=== PATIENT | female | born 1925 | race African-American/Black ===

== ENCOUNTER 2016-07-19 08:28 | Inpatient (IN) | payer MEDICARE, MEDICAID ==
[~2016-07-19] VITALS: Ht 154.9 cm; Wt 52.6 kg
[~2016-07-19 08:28] MED LIST: AMLODIPINE BESYL5 MG ORAL; ASPIRIN81 MG ORAL; CREON DR 12,001 EACH PO; LEVOTHYROXINE75 MCG ORAL; MEGACE ORA400 MG/10 ORAL; MIRTAZAPINE15 M3 ORAL; NAMENDA5 MG ORAL; OMEPRAZOLE20 M2 ORAL; PERCOCET 10-321 EACH ORAL; ZOCOR20 MG ORAL
[2016-07-19 20:30] VITALS: BP 156/77
[2016-07-19] MEDS ORDERED: D5 1/2NS w/KCl 20mEq 1,000 ML IV SCH (23:00)
[2016-07-19] MEDS ORDERED: Acetaminophen 650 MG SUPP RECTAL PRN (23:00)
[2016-07-19] MEDS ORDERED: Enalaprilat 2.5mg/2ml Inj IV PRN (23:00)
[2016-07-20] VITALS (9 sets, daily range): BP systolic 129–165; BP diastolic 68–84
[2016-07-20] MEDS ORDERED: MIRTAZAPINE30 MG ORAL (02:23)
[2016-07-20] MEDS: metroNIDAZOLE 500mg 100 ML IVPB SCH ×3 (06:06→22:21)
[2016-07-20] MEDS: D5 1/2NS w/KCl 20mEq 1,000 ML IV SCH ×2 (06:39→18:29)
[2016-07-20 08:14] LABS: BASOPHILS % (AUTO) 0.6 % (0.0-2.0); EOSINOPHILS % (AUTO) 0.6 % (0.0-3.0); MEAN CORPUSCULAR HEMOGLOBIN 29.1 PG (27.0-31.0); MEAN CORPUSCULAR HGB CONC 32.1 G/DL (32.0-36.0); MEAN CORPUSCULAR VOLUME 91 FL (80-99); MEAN PLATELET VOLUME 6.1 FL (6.5-10.1); MONOCYTES % (AUTO) 6.9 % (1.0-10.0); NEUTROPHILS % (AUTO) 75.9 % (45.0-75.0); PLATELET COUNT 441 K/UL (150-450); RED BLOOD COUNT 3.92 M/UL (4.20-5.40); RED CELL DISTRIBUTION WIDTH 15.8 % (11.6-14.8); WHITE BLOOD COUNT 11.4 K/UL (4.8-10.8)
[2016-07-20 08:15] LABS: TROPONIN I < 0.30 ng/mL (<=0.30)
[2016-07-20 08:24] LABS: ALANINE AMINOTRANSFERASE 31 U/L (3-33); ALBUMIN/GLOBULIN RATIO 0.9 (1.0-2.7); ANION GAP 22 (5-15); ASPARTATE AMINO TRANSFERASE 43 U/L (5-40); CALCIUM 8.8 mg/dL (8.6-10.2); CARBON DIOXIDE 14 mEQ/L (20-30); CHLORIDE 108 mEQ/L (98-107); CREATININE 1.3 mg/dL (0.5-0.9); HEMOLYSIS 97; POTASSIUM 3.9 mEQ/L (3.4-4.9); SODIUM 144 mEQ/L (135-145); TOTAL PROTEIN 6.9 g/dL (6.6-8.7)
[2016-07-20] MEDS: Pantoprazole Inj IVP SCH (09:08)
[2016-07-20] MEDS: Heparin 5000 units/ml inj SUBQ SCH ×2 (09:11→20:27)
[2016-07-20] MEDS ORDERED: Tubing IV Secondary IV ONE (09:28)
--- NOTE | 2016-07-20 14:04 | Neurology Progress Note ---
Objective Physical Exam Last Vital Signs Date Time Temp Pulse Resp B/P Pulse Ox O2 Delivery O2 Flow Rate FiO2 07/20/16 11:13 97.7 82 18 137/81 100 Nasal Cannula 2.0 07/20/16 08:00 100 Laboratory Tests Test 07/20/16 07:35 White Blood Count 11.4 K/UL (4.8-10.8) H Red Blood Count 3.92 M/UL (4.20-5.40) L Hemoglobin 11.4 G/DL (12.0-16.0) L Hematocrit 35.5 % (37.0-47.0) L Mean Corpuscular Volume 91 FL (80-99) Mean Corpuscular Hemoglobin 29.1 PG (27.0-31.0) Mean Corpuscular Hemoglobin Concent 32.1 G/DL (32.0-36.0) Red Cell Distribution Width 15.8 % (11.6-14.8) H Platelet Count 441 K/UL (150-450) Mean Platelet Volume 6.1 FL (6.5-10.1) L Neutrophils (%) (Auto) 75.9 % (45.0-75.0) H Lymphocytes (%) (Auto) 16.0 % (20.0-45.0) L Monocytes (%) (Auto) 6.9 % (1.0-10.0) Eosinophils (%) (Auto) 0.6 % (0.0-3.0) Basophils (%) (Auto) 0.6 % (0.0-2.0) Sodium Level 144 mEQ/L (135-145) Potassium Level 3.9 mEQ/L (3.4-4.9) Chloride Level 108 mEQ/L (98-107) H Carbon Dioxide Level 14 mEQ/L (20-30) L Anion Gap 22 (5-15) H Blood Urea Nitrogen 30 mg/dL (7-23) H Creatinine 1.3 mg/dL (0.5-0.9) H Estimat Glomerular Filtration Rate mL/min (>60) Glucose Level 108 mg/dL (74-106) H Calcium Level 8.8 mg/dL (8.6-10.2) Total Bilirubin 0.3 mg/dL (0.0-1.2) Aspartate Amino Transf (AST/SGOT) 43 U/L (5-40) H Alanine Aminotransferase (ALT/SGPT) 31 U/L (3-33) Alkaline Phosphatase 366 U/L (35-104) H Troponin I < 0.30 ng/mL (<=0.30) Total Protein 6.9 g/dL (6.6-8.7) Albumin 3.4 g/dL (3.5-5.2) L Globulin 3.5 g/dL Albumin/Globulin Ratio 0.9 (1.0-2.7) L Impression/Recommendations Problems: (1) persistant lethargy r/o sepsis r/o sz activity/meningoencephalitis-doubt (2) Failure to thrive in adult Status: unchanged Recommendations #[id number] RIMMA LAYTON July 20, 2016 14:04
--- NOTE | 2016-07-20 16:31 | History and Physical Report ---
DATE OF ADMISSION: 07/19/2016 CHIEF COMPLAINT: Altered mentation. HISTORY OF PRESENT ILLNESS: This 89-year-old female, well known to me. She has a history of hypertension, dementia, chronic kidney disease and she has a history of chronic DVT status post IVC filter. She was transferred initially to an outside hospital with complaints of altered mental status. According to the patient's family, the patient became acutely altered. She had one day prior she had an episode of incontinence. There are no reports of any seizures or falls. She was taken to [facility]. Workup there so far has been unremarkable. She was diagnosed with the UTI. She had CAT scan of the head showed only diffuse atrophy. She had a duplex that did show DVT in the lower extremities. The patient was on antibiotic therapy for possible UTI and was transferred here for continued care. The patient is currently arousable and does respond to questions, but is minimally verbal. She does follow commands. Denies any chest pain or shortness of breath. No headaches. PAST MEDICAL HISTORY: As above. PAST SURGICAL HISTORY: None. MEDICATIONS: Current medications reconciled and reviewed. ALLERGIES: None. SOCIAL HISTORY: Negative for tobacco, ethanol, or drugs. FAMILY HISTORY: Significant for history of coronary artery disease and hypertension. REVIEW OF SYSTEMS: General: No fever or chills. HEENT: No headaches or visual changes. Cardiopulmonary: No chest pain or shortness of breath. Gastrointestinal: No nausea or vomiting. Genitourinary: No urgency or frequency. Musculoskeletal: Positive history of joint pains. No evidence of seizures. PHYSICAL EXAMINATION: VITAL SIGNS: Temperature 96.6 degrees, pulse 81, respirations 18, and blood pressure 129/68. GENERAL: The patient is well developed thin female, in no apparent distress. She is easily arousable, but only nods yes and no. HEENT: Her pupils are equal, round, and reactive to light. Oropharynx clear. NECK: Supple. HEART: Regular rate and rhythm. LUNGS: Lungs are clear. ABDOMEN: Soft, nontender and nondistended. EXTREMITIES: Without clubbing, cyanosis, or edema. LABORATORY AND DIAGNOSTIC DATA: Laboratories are currently pending. ASSESSMENT: This is an elderly female with complaints of altered mentation, unclear etiology. Initial workup including imaging of the brain have been unremarkable, would be concerned about possible seizures with history of the patient's incontinence. PLAN: EEG, Neurology consultation. Continue antibiotics. We will repeat laboratories. PT, OT and ST evaluations will be obtained. Plan of care has been discussed with the patient's daughter. Pete Martínez M.D. DR: KRISTY JOB#: [id number] CC:
[2016-07-20] MEDS ORDERED: D5 1/2NS w/KCl 20mEq 1,000 ML IV SCH (23:00)
[2016-07-21] VITALS (7 sets, daily range): BP systolic 150–179; BP diastolic 83–98
--- NOTE | 2016-07-21 01:46 | Progress Note ---
DATE: 07/20/2016 CARDIOLOGY PROGRESS NOTE SUBJECTIVE: The patient remains withdrawn and lethargic, but alert. OBJECTIVE: VITAL SIGNS: Blood pressure 165/83, pulse 93, respirations 20, and febrile. NECK: Supple. LUNGS: Clear. CARDIAC: Regular. Normal S1 and S2 with a fourth heart sound. ABDOMEN: Soft. EXTREMITIES: No edema. LABORATORY DATA: Sed rate 86, white count 11.4, and hemoglobin 11.4. Sodium 144, potassium 3.9, bicarb 14, BUN 30, and creatinine 1.3. Troponin negative. Albumin 3.4. IMPRESSION: 1. Metabolic acidosis. 2. Acute on chronic renal failure. 3. Toxic and metabolic encephalopathies. 4. Hypertensive cardiomyopathy with rising blood pressure trend. 5. Diastolic dysfunction with no signs of acute congestive heart failure. 6. Mild protein-calorie malnutrition. 7. Acute on chronic deep venous thrombosis with history of inferior vena cava filter. RECOMMENDATIONS: 1. Continue hydration and antibiotics. 2. Consider alkalinizing intravenous fluids. 3. Avoid tighter blood pressure control at this time. 4. DVT prophylactic doses of heparin. 5. Review EKG when available. Han Capone M.D. DR: MIMI JOB#: [id number] CC:
--- NOTE | 2016-07-21 02:16 | Consultation ---
DATE OF CONSULTATION: 07/20/2016 REQUESTING PHYSICIAN: Pete Martínez M.D. REASON FOR CONSULTATION: Encephalopathy in the setting of hypertensive cardiomyopathy. 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 She was in her usual state of health in fact seen in my office less than 2 weeks ago. Over the past two days, she apparently had an episode of incontinence and became increasingly altered. She was taken to an outside emergency room at [facility] where workup was reviewed. The diagnosis of UTI was made and other diagnostic studies included a CAT scan of the brain revealing diffuse atrophy and venous duplex revealing right-sided chronic thrombus, left-sided acute thrombus and evidence of metabolic acidosis and acute on chronic renal failure. The patient was transferred here for completion of care. According to her daughter, she did not have any leg swelling, shortness of breath, chest pain, or other constitutional symptoms prior to these episodes. PAST MEDICAL HISTORY: Prior history of DVT with IVC filter, chronic kidney disease, hypertension with hypertensive heart disease, diastolic dysfunction, cerebrovascular disease with dementia, osteoarthritis, and degenerative disk disease. ALLERGIES: None. MEDICATIONS: Prior to admission, reviewed and reconciled. SOCIAL HISTORY: Negative for smoking, alcohol, or substance abuse. FAMILY HISTORY: Notable for coronary disease and hypertension in her daughter and hyperlipidemia. REVIEW OF SYSTEMS: No fevers or chills. No cough. No history of asthma. She has chronic DVT and an IVC filter. She has multi-infarct disease. No history of seizures. No change in bowel habits. She has chronic kidney disease, stage 3. There is no history of diabetes or thyroid impairment. PHYSICAL EXAMINATION: VITAL SIGNS: Afebrile. Blood pressure 156/77, pulse 85, respirations 20, and oxygen saturation 98% on 2 liters. HEENT: Temporal wasting. Arcus senilis. Pale conjunctivae. Oropharynx is clear. Mucous membranes dry. NECK: Supple. Jugular venous pressure normal. Carotid upstrokes without delay. LUNGS: Clear. Chest wall without deformity. CARDIAC: Regular rhythm and rate. Normal S1 and S2 with a fourth heart sound. ABDOMEN: Soft and nontender. EXTREMITIES: No edema. NEUROLOGIC: Withdrawn and lethargic. No focal deficits. LABORATORY DATA: Repeat laboratories are pending. Electrocardiogram is not available from prior facility. Troponin is negative. IMPRESSION: 1. Altered mentation. 2. Metabolic encephalopathy. 3. Metabolic acidosis. 4. Acute and chronic deep venous thrombosis. 5. History of inferior vena cava filter. 6. Hypertensive cardiomyopathy. 7. No signs of acute congestive heart failure. 8. Acute on chronic kidney injury. PLAN: 1. Hydration. 2. Monitor acid-base parameters. 3. Titrate antihypertensives. 4. Avoid tight blood pressure control. 5. Continue subcutaneous heparin for DVT prophylaxis. 6. Full anticoagulation would be high risk in this patient and she does already have an IVC filter for this reason. 7. Anti-platelet therapy will be given and she is currently completing antibiotics for urinary infection. 8. An electrocardiogram is pending. Han Capone M.D. DR: JOHNATHON JOB#: [id number] CC:
[2016-07-21] MEDS: metroNIDAZOLE 500mg 100 ML IVPB SCH ×3 (05:41→21:44)
--- NOTE | 2016-07-21 08:58 | General Progress Note ---
Assessment/Plan Problem List: (1) Diarrhea ICD Codes: R19.7 - Diarrhea, unspecified SNOMED: 33464884 (2) Sepsis ICD Codes: A41.9 - Sepsis SNOMED: 52637011 (3) UTI (lower urinary tract infection) ICD Codes: N39.0 - UTI (lower urinary tract infection) SNOMED: 7985506 (4) ARF (acute renal failure) ICD Codes: N17.9 - ARF (acute renal failure) SNOMED: 94674093 (5) Dehydration ICD Codes: E86.0 - Dehydration SNOMED: 95745151 (6) Encephalopathy acute ICD Codes: G93.40 - Encephalopathy acute SNOMED: 2677454 (7) Altered mental state ICD Codes: R41.82 - Altered mental status, unspecified SNOMED: 551664549 (8) persistant lethargy r/o sepsis r/o sz activity/meningoencephalitis-doubt Status: stable, progressing Assessment/Plan tele monitor for diarrhea neuro work up ct abd pt/ot follow up labs dw/ dtr Subjective ROS Limited/Unobtainable: No Constitutional: Reports: malaise, weakness HEENT: Reports: no symptoms Cardiovascular: Reports: no symptoms Respiratory: Reports: no symptoms Gastrointestinal/Abdominal: Reports: no symptoms Genitourinary: Reports: no symptoms Neurologic/Psychiatric: Reports: no symptoms Endocrine: Reports: no symptoms Hematologic/Lymphatic: Reports: no symptoms Allergies: Coded Allergies: No Known Allergies (Verified Allergy, Mild, 05/08/06) All Systems: reviewed and negative except above Subjective no events. less diarrhea. more awake and alert. close to baseline,. very weak Objective Last 24 Hour Vital Signs Date Time Temp Pulse Resp B/P Pulse Ox O2 Delivery O2 Flow Rate FiO2 07/21/16 08:00 98.6 96 20 158/98 100 Room Air 07/21/16 04:00 96 07/21/16 04:00 97.2 93 20 150/85 100 Room Air 2.0 100 07/21/16 00:30 97.2 07/21/16 00:00 92 07/21/16 00:00 95.8 93 20 153/84 100 Room Air 2.0 100 07/20/16 20:26 165/83 07/20/16 20:00 97.0 93 20 165/83 100 Room Air 07/20/16 20:00 93 07/20/16 18:10 139/82 07/20/16 16:00 97.0 85 19 158/84 95 Room Air 07/20/16 15:44 97.2 83 18 140/81 100 Nasal Cannula 2.0 07/20/16 15:42 85 07/20/16 11:43 71 07/20/16 11:13 97.7 82 18 137/81 100 Nasal Cannula 2.0 Intake and Output 07/20/16 07/21/16 19:00 07:00 Intake Total 963.75 ml 875 ml Balance 963.75 ml 875 ml Intake IV Total 963.75 ml 875 ml # Voids 1 1 # Bowel Movements 2 1 Laboratory Tests 07/20/16 14:50: Total Protein (PEP) [Pending], Albumin (PEP) [Pending], Globulin (PEP) [Pending] , Albumin/Globulin Ratio [Pending], Kieiu-2-Kzdbfccgj [Pending], Alpha-2- Globulins [Pending], Beta Globulins [Pending], Beta Gamma Globulin [Pending], PEP Abnormal Protein Bands [Pending], Protein Electrophoresis Interpret [Pending ], CA 15-3 Antigen [Pending], Vitamin D 25-Hydroxy [Pending], 25-Hydroxy Vitamin D2 [Pending], 25-Hydroxy Vitamin D3 [Pending], Anti-Nuclear Antibody Screen [Pending] Height (Feet): 5 Height (Inches): 1.00 Weight (Pounds): 116 General Appearance: WD/WN, alert Neck: supple Cardiovascular: regular rhythm Respiratory/Chest: lungs clear Abdomen: normal bowel sounds, non tender, soft, no organomegaly Edema: no edema noted Arm (L), no edema noted Arm (R), no edema noted Leg (L), no edema noted Leg (R), no edema noted Pedal (L), no edema noted Pedal (R), no edema noted Generalized AMALIA CLAY July 21, 2016 08:58
[2016-07-21] MEDS: Pantoprazole Inj IVP SCH (09:10)
[2016-07-21] MEDS: D5 1/2NS w/KCl 20mEq 1,000 ML IV SCH ×2 (09:10→22:00)
[2016-07-21] MEDS: Heparin 5000 units/ml inj SUBQ SCH ×2 (09:11→20:52)
[2016-07-21] MEDS: Aspirin Baby 81mg ORAL SCH (09:11)
[2016-07-21 10:21] LABS: CA15-3 16.8 U/mL (0.0-25.0)
[2016-07-21 12:02] LABS: ALANINE AMINOTRANSFERASE 27 U/L (3-33); ANION GAP 21 (5-15); ASPARTATE AMINO TRANSFERASE 38 U/L (5-40); CALCIUM 9.1 mg/dL (8.6-10.2); CARBON DIOXIDE 15 mEQ/L (20-30); CHLORIDE 98 mEQ/L (98-107); CREATININE 1.1 mg/dL (0.5-0.9); HEMOLYSIS 17; POTASSIUM 3.4 mEQ/L (3.4-4.9); SODIUM 134 mEQ/L (135-145); TOTAL PROTEIN 7.9 g/dL (6.6-8.7)
[2016-07-21 12:16] LABS: A/G RATIO 0.9 (0.7-1.7); ABNORMAL PROTEIN BAND 1 Not Observed g/dL (Not Observed); ALBUMIN 3.7 g/dL (2.9-4.4); ALPHA-1 GLOBULIN 0.3 g/dL (0.0-0.4); ALPHA-2 GLOBULIN 1.2 g/dL (0.4-1.0); BETA GLOBULIN 1.2 g/dL (0.7-1.3); GAMMA GLOBULIN 1.3 g/dL (0.4-1.8); TOTAL PROTEIN 7.7 g/dL (6.0-8.5)
--- NOTE | 2016-07-21 16:52 | Neurology Progress Note ---
Interim History Interim History ROS Limited/Unobtainable: Yes Complaints: feel ok Events: now avake Objective Physical Exam Last Vital Signs Date Time Temp Pulse Resp B/P Pulse Ox O2 Delivery O2 Flow Rate FiO2 07/21/16 16:02 98.1 94 20 167/86 97 Nasal Cannula 2.0 07/21/16 04:00 100 Laboratory Tests Test 07/21/16 10:50 Sodium Level 134 mEQ/L (135-145) L Potassium Level 3.4 mEQ/L (3.4-4.9) Chloride Level 98 mEQ/L (98-107) Carbon Dioxide Level 15 mEQ/L (20-30) L Anion Gap 21 (5-15) H Blood Urea Nitrogen 16 mg/dL (7-23) Creatinine 1.1 mg/dL (0.5-0.9) H Estimat Glomerular Filtration Rate mL/min (>60) Glucose Level 151 mg/dL (74-106) H Calcium Level 9.1 mg/dL (8.6-10.2) Total Bilirubin 0.3 mg/dL (0.0-1.2) Aspartate Amino Transf (AST/SGOT) 38 U/L (5-40) Alanine Aminotransferase (ALT/SGPT) 27 U/L (3-33) Alkaline Phosphatase 384 U/L (35-104) H Total Protein 7.9 g/dL (6.6-8.7) Albumin 4.0 g/dL (3.5-5.2) Globulin 3.9 g/dL Albumin/Globulin Ratio 1.0 (1.0-2.7) General: well developed, well nourished, no acute distress Head: normocophalic, atraumatic Neck: no rigidity Neurologic Exam Mental Status: awake, alert, other - very confused ox1, follows commands Speech: normal speech, no dysarthia Language: normal language, no aphasia Cranial Nerve II: fundus normal, visual herrera, no papilledema Cranial Nerves III, IV, : PERRLA, EOMI, pupils Cranial Nerve V: normal facial sensations, temporales function normal, masseters function normal, pterygoids function normal Cranial Nerve VII: no facial asymmetry, normal facial expressions Cranial Nerve VIII: no nystagmus Cranial Nerve IX: normal palate elevation, gag response Cranial Nerve X: no voice hoarseness Cranial Nerve XI: SCM symmetric, trapezii function normal Cranial Nerve XII: tongue midline, no tongue atrophy/fasciculations Motor System: normal muscle tone, no involuntary movement, no muscle wasting, other - weakness 4/5 Sensory: normal pinprick Coordination: normal finger to nose bilaterally Deep Tendon Reflexes: 0 ankle (L), 0 ankle (R), 0 bicep (L), 0 bicep (R), 0 brachioradialis (L), 0 brachioradialis (R), 0 knee (L), 0 knee (R), 0 tricep (L) , 0 tricep (R) Reflexes: mute plantar (L), mute plantar (R) Impression/Recommendations Problems: (1) Sepsis with metabolic encephalopathy (2) Failure to thrive in adult (3) Dementia arising in the senium and presenium Status: stable, progressing Recommendations #[id number] neuro stable cont present rx RIMMA LAYTON July 21, 2016 16:52
[2016-07-22] VITALS (7 sets, daily range): BP systolic 127–162; BP diastolic 78–108
--- NOTE | 2016-07-22 03:01 | Progress Note ---
DATE: 07/21/2016 CARDIOLOGY PROGRESS NOTE: SUBJECTIVE: The patient is somewhat more alert and interactive, closer to baseline mentation. She has less diarrhea. OBJECTIVE: VITAL SIGNS: Blood pressure 158/98, pulse 96, respiratory rate 20, afebrile. LUNGS: Coarse breath sounds. Scattered rhonchi. HEART: Regular rhythm and rate. Normal S1, S2. ABDOMEN: Soft. No edema. LABORATORY DATA: Sodium 134, potassium 3.4, bicarbonate 15, BUN 16, creatinine 1.1, glucose 151. Albumin 4. IMPRESSIONS: 1. Dehydration. 2. Hypovolemia. 3. Persistent metabolic acidosis. 4. Chronic kidney disease. 5. Hypertensive heart disease with rising blood pressure range. 6. Cardiomyopathy. 7. Cerebrovascular disease with dementia. PLAN: 1. Continue with hydration. 2. Agree with CT scan of the abdomen. 3. Titrate antihypertensives; however, avoid tight blood pressure control at this time. 4. We will follow. Han Capone M.D. DR: Arnulfo JOB#: [id number] CC:
[2016-07-22] MEDS: metroNIDAZOLE 500mg 100 ML IVPB SCH (05:28)
[2016-07-22] MEDS: D5 1/2NS w/KCl 20mEq 1,000 ML IV SCH ×2 (05:29→23:09)
--- NOTE | 2016-07-22 09:11 | General Progress Note ---
Assessment/Plan Problem List: (1) Diarrhea ICD Codes: R19.7 - Diarrhea, unspecified SNOMED: 22814970 (2) Sepsis ICD Codes: A41.9 - Sepsis SNOMED: 21715012 (3) UTI (lower urinary tract infection) ICD Codes: N39.0 - UTI (lower urinary tract infection) SNOMED: 4014373 (4) ARF (acute renal failure) ICD Codes: N17.9 - ARF (acute renal failure) SNOMED: 96742730 (5) Dehydration ICD Codes: E86.0 - Dehydration SNOMED: 08981729 (6) Encephalopathy acute ICD Codes: G93.40 - Encephalopathy acute SNOMED: 6334499 (7) Altered mental state ICD Codes: R41.82 - Altered mental status, unspecified SNOMED: 152589387 (8) persistant lethargy r/o sepsis r/o sz activity/meningoencephalitis-doubt Status: stable, progressing Assessment/Plan tele monitor for diarrhea neuro work up ct abd pt/ot follow up labs dw/ dtr Subjective ROS Limited/Unobtainable: No Constitutional: Reports: malaise, weakness HEENT: Reports: no symptoms Cardiovascular: Reports: no symptoms Respiratory: Reports: no symptoms Gastrointestinal/Abdominal: Reports: no symptoms Genitourinary: Reports: no symptoms Neurologic/Psychiatric: Reports: no symptoms Endocrine: Reports: no symptoms Hematologic/Lymphatic: Reports: no symptoms Allergies: Coded Allergies: No Known Allergies (Verified Allergy, Mild, 05/08/06) All Systems: reviewed and negative except above Subjective no events. soft stool. more awake and alert. close to baseline. very weak Objective Last 24 Hour Vital Signs Date Time Temp Pulse Resp B/P Pulse Ox O2 Delivery O2 Flow Rate FiO2 07/22/16 08:16 97.0 92 18 157/94 100 Room Air 07/22/16 04:00 89 07/22/16 04:00 97.0 95 20 148/91 98 Nasal Cannula 2.0 100 07/22/16 01:01 143/85 07/22/16 00:00 97.0 101 20 162/108 98 Nasal Cannula 2.0 100 07/22/16 00:00 100 07/21/16 20:08 158/83 07/21/16 20:00 102 07/21/16 20:00 97.0 100 16 179/98 97 Nasal Cannula 2.0 100 07/21/16 16:02 98.1 94 20 167/86 97 Nasal Cannula 2.0 07/21/16 16:00 97 07/21/16 12:08 98.1 93 20 155/90 100 Nasal Cannula 2.0 07/21/16 12:00 91 Intake and Output 07/21/16 07/22/16 19:00 07:00 Intake Total 275 ml 750 ml Output Total 2 ml Balance 275 ml 748 ml Intake Oral 200 ml IV Total 75 ml 750 ml Output Urine Total 2 ml # Voids 3 # Bowel Movements 1 Laboratory Tests 07/21/16 10:50: Sodium Level 134L, Potassium Level 3.4, Chloride Level 98, Carbon Dioxide Level 15L, Anion Gap 21H, Blood Urea Nitrogen 16, Creatinine 1.1H, Estimat Glomerular Filtration Rate , Glucose Level 151H, Calcium Level 9.1, Total Bilirubin 0.3, Aspartate Amino Transf (AST/SGOT) 38, Alanine Aminotransferase (ALT/SGPT) 27, Alkaline Phosphatase 384H, Total Protein 7.9, Albumin 4.0, Globulin 3.9, Albumin /Globulin Ratio 1.0 Height (Feet): 5 Height (Inches): 1.00 Weight (Pounds): 116 Objective General Appearance: WD/WN, alert Neck: supple Cardiovascular: regular rhythm Respiratory/Chest: lungs clear Abdomen: normal bowel sounds, non tender, soft, no organomegaly Edema: no edema noted Arm (L), no edema noted Arm (R), no edema noted Leg (L), no edema noted Leg (R), no edema noted Pedal (L), no edema noted Pedal (R), no edema noted Generalized AMALIA CLAY July 22, 2016 09:11
[2016-07-22] MEDS: Aspirin Baby 81mg ORAL SCH (09:20)
[2016-07-22] MEDS: Pantoprazole Inj IVP SCH (09:21)
[2016-07-22] MEDS: Heparin 5000 units/ml inj SUBQ SCH ×2 (09:22→21:00)
[2016-07-22 11:49] LABS: ALANINE AMINOTRANSFERASE 21 U/L (3-33); ALBUMIN/GLOBULIN RATIO 0.8 (1.0-2.7); ANION GAP 22 (5-15); ASPARTATE AMINO TRANSFERASE 35 U/L (5-40); CALCIUM 8.9 mg/dL (8.6-10.2); CARBON DIOXIDE 15 mEQ/L (20-30); CHLORIDE 98 mEQ/L (98-107); HEMOLYSIS 2; POTASSIUM 3.4 mEQ/L (3.4-4.9); SODIUM 135 mEQ/L (135-145); TOTAL PROTEIN 7.7 g/dL (6.6-8.7)
[2016-07-22] MEDS: metroNIDAZOLE 500mg tab ORAL SCH ×2 (13:54→21:27)
[2016-07-23] VITALS: BP 137/83
--- NOTE | 2016-07-23 03:15 | Progress Note ---
DATE: 07/22/2016 CARDIOLOGY PROGRESS NOTE SUBJECTIVE: The patient is more awake, alert, and interactive. Closer to her baseline level of mentation. OBJECTIVE: VITAL SIGNS: Blood pressure 157/94, pulse 92, and respirations 18. LUNGS: Bilateral breath sounds with no wheezing or rales. HEART: Regular rhythm and rate. Normal S1 and S2 with a fourth heart sound. ABDOMEN: Soft. EXTREMITIES: No edema. LABORATORY DATA: Sodium 135, potassium 3.4, bicarbonate 15, BUN 11, and creatinine 1. Next. IMPRESSION: 1. Metabolic encephalopathy. 2. Metabolic acidosis. 3. Hypokalemia. 4. Hypovolemia. 5. Dehydration. 6. Hypertensive cardiomyopathy with rising blood pressure trend. PLAN: 1. Hydration. 2. Consider bicarbonate replacement. 3. Await CT of the abdomen. 4. Uptitrate antihypertensives. 5. Empiric antibiotics. Han Capone M.D. DR: MIMI JOB#: [id number] CC:
[2016-07-23 04:00] VITALS: BP 149/87
[2016-07-23] MEDS: metroNIDAZOLE 500mg tab ORAL SCH (06:00)
[2016-07-23 06:39] LABS: ALANINE AMINOTRANSFERASE 19 U/L (3-33); ALBUMIN/GLOBULIN RATIO 0.8 (1.0-2.7); ANION GAP 22 (5-15); ASPARTATE AMINO TRANSFERASE 37 U/L (5-40); CALCIUM 9.3 mg/dL (8.6-10.2); CARBON DIOXIDE 16 mEQ/L (20-30); CHLORIDE 99 mEQ/L (98-107); CREATININE 1.1 mg/dL (0.5-0.9); HEMOLYSIS 38; POTASSIUM 3.8 mEQ/L (3.4-4.9); SODIUM 137 mEQ/L (135-145); TOTAL PROTEIN 8.2 g/dL (6.6-8.7)
[2016-07-23] MEDS: Aspirin Baby 81mg ORAL SCH (08:11)
[2016-07-23] MEDS: Heparin 5000 units/ml inj SUBQ SCH ×2 (08:13→21:14)
[2016-07-23 08:20] VITALS: BP 134/90
[2016-07-23 12:34] VITALS: BP 125/79
[2016-07-23] MEDS: Memantine 10mg tab ORAL SCH ×3 (13:15→13:51)
[2016-07-23] MEDS: D5 1/2NS w/KCl 20mEq 1,000 ML IV SCH (14:32)
--- NOTE | 2016-07-23 14:49 | Cardiology Report ---
APPROVED REPORT EKG Measurement Heart [id number] Normal sinus rhythm Normal ECG
[2016-07-23 16:00] VITALS: BP 139/86
[2016-07-23 20:58] VITALS: BP 145/75
[2016-07-23] MEDS ORDERED: Donepezil 5mg Tab ORAL SCH (21:00)
[2016-07-23] MEDS ORDERED: Acetaminophen 650 MG SUPP RECTAL PRN (23:00)
--- NOTE | 2016-07-23 23:30 | Progress Note ---
DATE: 07/23/2016 CARDIOLOGY PROGRESS NOTE SUBJECTIVE: There are no new complaints. The patient remains withdrawn, but improving daily. No chest pain. No shortness of breath. OBJECTIVE: VITAL SIGNS: Blood pressure 145/75, pulse 97, respirations 18, and room air oxygen saturation 98%. NECK: Supple. LUNGS: Clear. CARDIAC: Regular. Normal S1 and S2 with a fourth heart sound. ABDOMEN: Soft. EXTREMITIES: No edema. LABORATORY DATA: BUN 9, creatinine 1.1, bicarbonate 16, sodium 137, potassium 3.8, and glucose 118. IMPRESSION: 1. Metabolic encephalopathy. 2. Metabolic acidosis. 3. Hypertensive heart disease. 4. Accelerated blood pressure. 5. Recurring diarrhea. 6. Resolving sepsis. 7. Acute on chronic renal failure. 8. Urinary tract infection. PLAN: 1. Continue hydration. 2. Titration of antihypertensives. 3. Monitor volume status and cardiorenal parameters. 4. Await CT scan of the abdomen. 5. Mobilize. Han Capone M.D. DR: JOHNATHON JOB#: [id number] CC:
[2016-07-24] VITALS: BP 110/62
[2016-07-24] MEDS ORDERED: Enalaprilat 2.5mg/2ml Inj IV PRN
[2016-07-24] MEDS: D5 1/2NS w/KCl 20mEq 1,000 ML IV SCH ×3 (00:09→20:00)
[2016-07-24 04:00] VITALS: BP 121/68
[2016-07-24 07:45] LABS: BASOPHILS % (AUTO) 0.6 % (0.0-2.0); EOSINOPHILS % (AUTO) 1.1 % (0.0-3.0); LYMPHOCYTES % (AUTO) 22.4 % (20.0-45.0); MEAN CORPUSCULAR HEMOGLOBIN 29.2 PG (27.0-31.0); MEAN CORPUSCULAR HGB CONC 33.6 G/DL (32.0-36.0); MEAN CORPUSCULAR VOLUME 87 FL (80-99); MEAN PLATELET VOLUME 6.4 FL (6.5-10.1); MONOCYTES % (AUTO) 7.3 % (1.0-10.0); NEUTROPHILS % (AUTO) 68.5 % (45.0-75.0); PLATELET COUNT 557 K/UL (150-450); RED BLOOD COUNT 4.66 M/UL (4.20-5.40); RED CELL DISTRIBUTION WIDTH 15.2 % (11.6-14.8); WHITE BLOOD COUNT 14.9 K/UL (4.8-10.8)
[2016-07-24 08:00] VITALS: BP 110/62
[2016-07-24 08:17] LABS: MAGNESIUM 1.1 mg/dL (1.7-2.5)
[2016-07-24 08:23] LABS: ALANINE AMINOTRANSFERASE 14 U/L (3-33); ALBUMIN/GLOBULIN RATIO 0.8 (1.0-2.7); ANION GAP 20 (5-15); ASPARTATE AMINO TRANSFERASE 27 U/L (5-40); CALCIUM 8.7 mg/dL (8.6-10.2); CARBON DIOXIDE 15 mEQ/L (20-30); CHLORIDE 101 mEQ/L (98-107); CREATININE 1.1 mg/dL (0.5-0.9); HEMOLYSIS 3; POTASSIUM 3.8 mEQ/L (3.4-4.9); SODIUM 136 mEQ/L (135-145)
--- NOTE | 2016-07-24 08:33 | Diagnostic Imaging Report ---
Indications: Abdominal pain and diarrhea Technique: Continuous helical CT imaging of the abdomen and pelvis was performed with automatic exposure control following administration of oral contrast only, on a Siemens sensation [address] scanner. Axial images were reconstructed at 5 mm slice thickness and interval. Coronal images were reconstructed at 5 mm slice thickness. No IV contrast was administered per requesting physicians order, despite no contraindications listed. CTDI volume(s): 11 mGy Total DLP: 521 mGy-cm Findings: Comparison: Noncontrast CT abdomen pelvis 10/31/13 Again, lack of IV contrast limits evaluation. Oral contrast has passed throughout the gastrointestinal tract to the level of the rectosigmoid. The latter is moderately distended and fecal filled. Remainder of tract nondilated. No obvious mural thickening, adjacent stranding, extraluminal gas or fluid collections. 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 Remainder visualized abdominopelvic anatomy demonstrates no other obvious acute abnormality. Irregular pleural-based linear densities persist in both lung bases. Prominent calcification again noted in region of mitral valve. Multilevel disc space narrowing/calcification with marginal osteophyte formation, facet sclerosis and hypertrophy again noted in lumbar spine. Subcentimeter anterior spondylolisthesis again noted at L4-5. Compression fracture of the superior endplate of the L1 vertebral body now noted, resulting in 30-40% height loss and mild retropulsion. No obvious posterior element involvement. IMPRESSION: No evidence of acute abdominopelvic disease, with limitation as described. Subtle but potentially significant abnormalities may be missed. Repeat CT scan with full oral and IV contrast preparation recommended for more complete evaluation, as clinically indicated. Interval development of moderate compression fracture of L1 vertebral body with mild retropulsion, acuity indeterminate. Consider MRI for further evaluation as clinically indicated. Multiple stable chronic changes as described
[2016-07-24] MEDS: Aspirin Baby 81mg ORAL SCH (09:44)
[2016-07-24] MEDS: Memantine 10mg tab ORAL SCH ×2 (09:47→18:11)
[2016-07-24] MEDS: Heparin 5000 units/ml inj SUBQ SCH ×2 (09:52→21:04)
[2016-07-24 11:37] LABS: VITAMIN D 25-OH TOTAL 46 ng/mL (.)
[2016-07-24 12:12] VITALS: BP 113/69
[2016-07-24 16:16] VITALS: BP 146/74
[2016-07-24 20:00] VITALS: BP 138/79
[2016-07-24] MEDS: Donepezil 5mg Tab ORAL SCH (20:57)
[2016-07-24] MEDS ORDERED: Norco 5mg/325mg tab ORAL PRN (21:00)
[2016-07-24 21:17] LABS: APPEARANCE,URINE CLEAR; KETONES,URINE NEGATIVE (NEGATIVE); LEUKOCYTE ESTERASE ,URINE 3+ (NEGATIVE); NITRITE,URINE NEGATIVE (NEGATIVE); PH,URINE 5 (4.5-8.0); PROTEIN,URINE 1+ (NEGATIVE); UROBILINOGEN,URINE NORMAL MG/DL (0.0-1.0)
[2016-07-24 21:23] LABS: BACTERIA,URINE FEW /HPF; SQUAMOUS EPITHELIAL CELL,UR FEW /LPF (NONE/OCC)
[2016-07-25] VITALS (7 sets, daily range): BP systolic 118–153; BP diastolic 69–80
[2016-07-25] MEDS: D5 1/2NS w/KCl 20mEq 1,000 ML IV SCH (06:11)
--- NOTE | 2016-07-25 07:34 | General Progress Note ---
Assessment/Plan Problem List: (1) Diarrhea ICD Codes: R19.7 - Diarrhea, unspecified SNOMED: 94906205 (2) Sepsis ICD Codes: A41.9 - Sepsis SNOMED: 15896175 (3) UTI (lower urinary tract infection) ICD Codes: N39.0 - UTI (lower urinary tract infection) SNOMED: 7633039 (4) ARF (acute renal failure) ICD Codes: N17.9 - ARF (acute renal failure) SNOMED: 32971114 (5) Dehydration ICD Codes: E86.0 - Dehydration SNOMED: 47558112 (6) Encephalopathy acute ICD Codes: G93.40 - Encephalopathy acute SNOMED: 7434110 (7) Altered mental state ICD Codes: R41.82 - Altered mental status, unspecified SNOMED: 589580127 (8) persistant lethargy r/o sepsis r/o sz activity/meningoencephalitis-doubt Status: stable, not improved Assessment/Plan monitor for diarrhea neuro work up ct abd- negative pt/ot follow up labs- WBC dc planning if labs ok dispo to be determined. await official PT recs. SNF ? ARU ? home with home health dw/ dtr Subjective ROS Limited/Unobtainable: Yes Constitutional: Reports: malaise, weakness HEENT: Reports: no symptoms Cardiovascular: Reports: no symptoms Respiratory: Reports: no symptoms Gastrointestinal/Abdominal: Reports: poor appetite Genitourinary: Reports: no symptoms Neurologic/Psychiatric: Reports: pre-existing deficit Endocrine: Reports: no symptoms Hematologic/Lymphatic: Reports: anemia Allergies: Coded Allergies: No Known Allergies (Verified Allergy, Mild, 05/08/06) All Systems: reviewed and negative except above Subjective no events. poor pos. Pt noted. remains weak. am labs pending. Objective Last 24 Hour Vital Signs Date Time Temp Pulse Resp B/P Pulse Ox O2 Delivery O2 Flow Rate FiO2 07/25/16 04:00 96.6 86 18 147/76 100 Room Air 07/25/16 00:00 96.1 87 20 127/70 97 Room Air 07/24/16 20:00 97.7 90 20 138/79 94 Room Air 07/24/16 18:07 73 146/74 07/24/16 16:16 97.7 79 16 146/74 96 Room Air 07/24/16 12:12 97.2 95 20 113/69 100 Room Air 07/24/16 09:46 76 112/77 07/24/16 08:00 96.6 96 17 110/62 99 Room Air Intake and Output 07/24/16 07/25/16 19:00 07:00 Intake Total 625 ml 600 ml Balance 625 ml 600 ml Intake Oral 550 ml IV Total 75 ml 600 ml # Voids 4 2 Laboratory Tests 07/24/16 20:45: Urine Color Pale yellow, Urine Appearance Clear, Urine pH 5, Urine Specific [place] 1.010, Urine Protein 1+H, Urine Glucose (UA) Negative, Urine Ketones Negative, Urine Occult Blood 5+H, Urine Nitrite Negative, Urine Bilirubin Negative, Urine Urobilinogen Normal, Urine Leukocyte Esterase 3+H, Urine RBC 5- 10H, Urine WBC 2-4, Urine Squamous Epithelial Cells Few, Urine Bacteria Few Height (Feet): 5 Height (Inches): 1.00 Weight (Pounds): 116 Objective General Appearance: WD/WN, alert Neck: supple Cardiovascular: regular rhythm Respiratory/Chest: lungs clear Abdomen: normal bowel sounds, non tender, soft, no organomegaly Edema: no edema noted Arm (L), no edema noted Arm (R), no edema noted Leg (L), no edema noted Leg (R), no edema noted Pedal (L), no edema noted Pedal (R), no edema noted Generalized AMALIA CLAY July 25, 2016 07:34
--- NOTE | 2016-07-25 09:15 | Diagnostic Imaging Report ---
Indication: Chest pain Technique: One view of the chest Comparison: 06/19/2014 Findings: Inferior vena cava filter is again demonstrated. Lungs and pleural spaces remain clear. The heart size is normal. Aorta is tortuous and calcified. Impression: No acute process
[2016-07-25] MEDS: Aspirin Baby 81mg ORAL SCH (09:18)
[2016-07-25] MEDS: Heparin 5000 units/ml inj SUBQ SCH ×2 (09:18→21:19)
[2016-07-25] MEDS: Memantine 10mg tab ORAL SCH ×2 (09:20→17:09)
[2016-07-25 11:06] LABS: BASOPHILS % (AUTO) 0.8 % (0.0-2.0); LYMPHOCYTES % (AUTO) 20.8 % (20.0-45.0); MEAN CORPUSCULAR HEMOGLOBIN 28.6 PG (27.0-31.0); MEAN CORPUSCULAR HGB CONC 32.6 G/DL (32.0-36.0); MEAN CORPUSCULAR VOLUME 88 FL (80-99); MEAN PLATELET VOLUME 6.2 FL (6.5-10.1); MONOCYTES % (AUTO) 6.6 % (1.0-10.0); NEUTROPHILS % (AUTO) 68.9 % (45.0-75.0); PLATELET COUNT 563 K/UL (150-450); RED BLOOD COUNT 5.06 M/UL (4.20-5.40); RED CELL DISTRIBUTION WIDTH 15.8 % (11.6-14.8); WHITE BLOOD COUNT 13.5 K/UL (4.8-10.8)
[2016-07-25] MEDS: Donepezil 5mg Tab ORAL SCH (21:14)
[2016-07-26] MEDS: D5 1/2NS w/KCl 20mEq 1,000 ML IV SCH ×3 (00:12→23:45)
[2016-07-26 04:00] VITALS: BP 141/69
[2016-07-26 07:05] LABS: BASOPHILS % (AUTO) 0.9 % (0.0-2.0); EOSINOPHILS % (AUTO) 3.1 % (0.0-3.0); LYMPHOCYTES % (AUTO) 20.8 % (20.0-45.0); MEAN CORPUSCULAR HEMOGLOBIN 29.3 PG (27.0-31.0); MEAN CORPUSCULAR HGB CONC 33.1 G/DL (32.0-36.0); MEAN CORPUSCULAR VOLUME 89 FL (80-99); MEAN PLATELET VOLUME 5.9 FL (6.5-10.1); NEUTROPHILS % (AUTO) 66.3 % (45.0-75.0); PLATELET COUNT 574 K/UL (150-450); RED BLOOD COUNT 4.63 M/UL (4.20-5.40); RED CELL DISTRIBUTION WIDTH 15.5 % (11.6-14.8)
[2016-07-26 07:30] LABS: ALANINE AMINOTRANSFERASE 10 U/L (3-33); ALBUMIN/GLOBULIN RATIO 1.1 (1.0-2.7); ANION GAP 19 (5-15); ASPARTATE AMINO TRANSFERASE 23 U/L (5-40); CALCIUM 8.8 mg/dL (8.6-10.2); CARBON DIOXIDE 15 mEQ/L (20-30); CHLORIDE 103 mEQ/L (98-107); CREATININE 1.2 mg/dL (0.5-0.9); HEMOLYSIS 34; MAGNESIUM 2.4 mg/dL (1.7-2.5); POTASSIUM 4.6 mEQ/L (3.4-4.9); SODIUM 137 mEQ/L (135-145); TOTAL PROTEIN 6.5 g/dL (6.6-8.7)
[2016-07-26 08:00] VITALS: BP 123/68
[2016-07-26] MEDS: Aspirin Baby 81mg ORAL SCH (09:01)
[2016-07-26] MEDS: Memantine 10mg tab ORAL SCH ×2 (09:01→18:04)
[2016-07-26] MEDS: Heparin 5000 units/ml inj SUBQ SCH ×2 (09:02→20:54)
[2016-07-26 11:51] VITALS: BP 131/68
[2016-07-26 15:55] VITALS: BP 144/76
--- NOTE | 2016-07-26 18:46 | Consultation ---
DATE OF CONSULTATION: HISTORY OF PRESENT ILLNESS: The patient is a 89-year-old female with a history of multiple medical problems including dementia, multiple UTIs, and acute renal failure, has been admitted to the hospital with altered mental status. Psychiatry was consulted. The patient presented with some anxiety and not improvement of the confusion. During the evaluation, the patient is a poor historian, presents with waxing and waning consciousness. No anxiety during the evaluation. The patient is currently receiving mirtazapine 30 mg at bedtime as well as memantine and donepezil. PAST PSYCHIATRIC HISTORY: Dementia has been treated with anxiolytics in the past. PAST MEDICAL HISTORY: Significant for hypertension, chronic kidney disease, DVT and urinary tract infection. PAST SURGICAL HISTORY: None. MEDICATIONS: Simvastatin, oxycodone, omeprazole, mirtazapine, memantine, megestrol, lipase, levothyroxine, aspirin and amlodipine. ALLERGIES: No known drug allergies. SOCIAL HISTORY: Substance abuse history, no history of illicit drug use or alcohol. Nonsmoker. FAMILY HISTORY: The patient has history of coronary artery disease as well as hypertension. MENTAL STATUS EXAMINATION: The patient was found asleep, however arousable. The patient appears to be confused and has waxing and waning consciousness. Mood is neutral during the evaluation, however, reported some anxiety and agitation. Affect is constricted congruent with mood. Thought process, there is a paucity of thought content. Memory, concentration and attention is impaired. Insight and judgment is impaired. ASSESSMENT: AXIS I Delirium due to general medical condition, however, the imaging has been unremarkable. Dementia. AXIS II Deferred. AXIS III Altered mental status. AXIS IV Low. AXIS V Global assessment of functioning is 25. PLAN: 1. The patient currently on 30 mg at bedtime, the dosage will be decreased to 15 mg at bedtime. 2. We will observe any improvement. No other psychotropic medications, I also recommend. 3. We will continue to observe the behavior. Ricco Reid M.D. DR: UMAIR JOB#: [id number] CC:
[2016-07-26 20:00] VITALS: BP 132/83
[2016-07-26] MEDS: Donepezil 5mg Tab ORAL SCH (20:50)
[2016-07-26 23:42] VITALS: BP 151/78
[2016-07-27 04:00] VITALS: BP 126/72
[2016-07-27] MEDS: D5 1/2NS w/KCl 20mEq 1,000 ML IV SCH (06:22)
[2016-07-27 08:01] VITALS: BP 140/77
[2016-07-27] MEDS: Aspirin Baby 81mg ORAL SCH (09:47)
[2016-07-27] MEDS: Memantine 10mg tab ORAL SCH (09:47)
[2016-07-27] MEDS: Heparin 5000 units/ml inj SUBQ SCH (09:48)
--- NOTE | 2016-07-27 11:41 | General Progress Note ---
Assessment/Plan Assessment/Plan GI CONSULT Dictated D/w DTR re possible PEG Family will evaluate and give me an answer over next few days Would continue Remeron. Push po. Family bringing home meals. Thank you José Jones MD Subjective Allergies: Coded Allergies: No Known Allergies (Verified Allergy, Mild, 05/08/06) Objective Last 24 Hour Vital Signs Date Time Temp Pulse Resp B/P Pulse Ox O2 Delivery O2 Flow Rate FiO2 07/27/16 09:47 83 140/77 07/27/16 08:01 97.8 83 18 140/77 95 Room Air 07/27/16 04:00 97.5 86 18 126/72 97 Room Air 07/26/16 23:42 96.3 93 20 151/78 93 Room Air 07/26/16 20:00 97.9 91 18 132/83 100 Room Air 07/26/16 18:04 96 144/76 07/26/16 15:55 97.0 96 18 144/76 98 Room Air 07/26/16 11:51 96.1 89 18 131/68 94 Room Air Intake and Output 07/26/16 07/27/16 19:00 07:00 Intake Total 810 ml 600 ml Balance 810 ml 600 ml Intake Oral 360 ml IV Total 450 ml 600 ml # Voids 4 2 # Bowel Movements 2 Height (Feet): 5 Height (Inches): 1.00 Weight (Pounds): 116 JOSÉ JONES July 27, 2016 11:40
[2016-07-27 12:00] VITALS: BP 128/73
[2016-07-27] MEDS ORDERED: NORVASC5 MG ORAL (14:11)
[2016-07-27] MEDS ORDERED: PROTONIX40 MG ORAL (14:11)
[2016-07-27] MEDS ORDERED: ACETAMINOPHEN650 MG RECTAL (14:11)
[2016-07-27] MEDS ORDERED: NAMENDA10 MG ORAL (14:11)
[2016-07-27] MEDS ORDERED: MIRTAZAPINE15 M3 ORAL (14:11)
[2016-07-27] MEDS ORDERED: ASPIRIN81 MG ORAL (14:11)
[2016-07-27] MEDS ORDERED: ARICEPT5 MG ORAL (14:11)
--- NOTE | 2016-07-27 15:32 | Wound Care Consultation ---
Wound Assessment Wound Assessment : Wound Number: #1 Wound Present on Admission: Yes New Wound: No Status Change of Wound: No Wound Location Body Site Modif: right Wound Location Body Site: heel Wound Type: pressure ulcer Irene Test: Does not Irene Pressure Ulcer Stage: deep tissue injury Wound Thickness: Full Thickness Wound Length: 3.0 Wound Width: 3.0 Wound Depth: utd Percent of Wound Purple/Maroon: 100 Wound Drainage Amount: None Wound Drainage Odor: None/Absent Tissue Surrounding Wound: Intact Wound General Appearance: Reddened - maroon Wound Comment #1 right heel deep tissue injury, admitted with DTI remains intact. sacral and left heel assessed , remains intact, no pressure ulcer present. Recommendation. - Local wound care as ordered. - Turn and reposition. - Low air loss mattress SPR. - Keep clean and dry. - Heel protectors. - Float heels . -Avoid shear and friction. -Assess and notify MD for any changes of condition. NANCY ROJO July 27, 2016 15:32
[2016-07-27 16:00] VITALS: BP 145/84
--- NOTE | 2016-07-27 21:32 | Progress Note ---
DATE: 07/27/2016 SUBJECTIVE: The patient is calm and cooperative. No behavior issues. The patient still complains of low appetite and family bringing food from home and encouraging the patient's to eat. The patient is slightly drowsy in the morning, however, more lucid. Compliant with medication. No behavior issues. MENTAL STATUS EXAMINATION: Alert and oriented times self. Mood is dysphoric. Affect is constricted. Congruent mood. Thought process is concrete. Thought content, no suicidal or homicidal ideation. No psychotic symptoms. Cognition is impaired. ASSESSMENT: 1. Major depressive disorder. 2. Failure to thrive. 3. Altered mental status. PLAN: 1. The patient will be continued on Remeron 50 milligram by mouth at bedtime. 2. We will continue to follow and monitor the patient's behavior. Ricco Reid M.D. DR: TONIA JOB#: [id number] CC:
--- NOTE | 2016-07-27 23:18 | Consultation ---
DATE OF CONSULTATION: 07/27/2016 GASTROENTEROLOGY CONSULTATION CHIEF COMPLAINT: I was asked to see this patient by Dr. Pete Martínez for evaluation of possible gastrostomy tube placement. HISTORY OF PRESENT ILLNESS: The patient is a debilitated 89-year-old woman with some degree of cognitive dysfunction, who was brought into the hospital due to failure to thrive and altered mental status. The patient was seen by other consultants. She is awake, but weak. The patient's daughter states that the patient has been eating reasonably well, although she sometimes takes encouragement and about eight days ago, however, she had some decline and has reduced her oral intake. She is here with a diagnosis of vomiting and dehydration and perhaps urinary tract infection. On my evaluation of the patient, she states she feels well and she has no symptoms. I discussed the indications, risks, alternatives, and possible complications of a gastrostomy tube placement with the patient's daughter and she wants to think about the issue. PAST MEDICAL HISTORY: History of failure to thrive, dementia, cardiomyopathy, and hypertension. SOCIAL HISTORY: The patient resides at home with her daughter who looks after her. She has had no recent history of smoking or drinking. FAMILY HISTORY: Noncontributory. REVIEW OF SYSTEMS: Otherwise negative. PHYSICAL EXAMINATION: GENERAL: Debilitated elderly woman, seen in her room. HEENT: Normocephalic and atraumatic. Sclerae anicteric. Oropharynx clear. NECK: Supple. CHEST: Clear to auscultation. CARDIOVASCULAR: Revealed a regular rate. ABDOMEN: Soft. Good bowel sounds. There is no organomegaly. EXTREMITIES: Revealed no edema. LABORATORY DATA: Laboratory data were noted. The patient had elevated alkaline phosphatase level, which is declining. Recent CT scan was noted. ASSESSMENT: This patient presents with failure to thrive, debilitation, dementia, and poor oral intake. Some of this is presumed to be acute due to her encephalopathy. This in turn may be due to acute process such as urinary tract infection, which is reversible. The patient's daughter wants to see if she can still monitor the patient and feed her by natural routes. At this point, she is not agreeable to gastrostomy tube placement to improve. The patient does have a mild elevation in alkaline phosphatase, which is improving. Her CT scan was negative and follows for now. Further workup considered if it persists or worsens. RECOMMENDATIONS: 1. Push oral intake. 2. Follow caloric intake and nutrition. 3. Treat the infection or any other underlying derangement. 4. Family decisions to follow. Thank you for asking me to participate in the care of this patient. Joés Jones M.D. DR: Joann JOB#: [id number] CC:
--- NOTE | 2016-07-29 05:52 | Discharge Summary ---
Discharge Summary Hospital Course Date of Admission July 19, 2016 at 20:48 Date of Discharge July 27, 2016 at 17:09 Admitting Diagnosis HPI Miesha Lombardi is a 89 year old female who was admitted on July 19, 2016 at 20:48 for Altered Mental Status Hospital Course [id number] Discharge Discharge Disposition Patient was discharged to SNF/Subacute Facility(03) Discharge Diagnoses: Juliana Whitlock NP July 29, 2016 05:52
--- NOTE | 2016-07-30 00:31 | Discharge Summary 2 SIG ---
DATE OF ADMISSION: 07/19/2016 DATE OF DISCHARGE: 07/27/2016 CONSULTANTS: 1. Jayden Rain M.D. 2. Han Capone M.D. 3. Ricco Reid M.D. 4. José Jones M.D. BRIEF HOSPITAL COURSE: The patient is an 89-year-old female with history of hypertension, dementia, chronic kidney disease, and history of chronic DVT, status post IVC filter. She was transferred initially to an outside hospital with complaints of altered mental status. According to the patient's family, the patient became acutely altered a day prior. She had an episode of incontinence. There were no reports of any seizure or falls. She was taken to [facility] and workup had been unremarkable. She was diagnosed with urinary tract infection and had a CT scan of the head that showed diffuse atrophy. She had venous duplex that showed DVT in the lower extremities and was given antibiotic therapy for urinary tract infection and was eventually transferred here for continued care. The patient was minimally verbal, arousable, responds to questions, and she does follow commands. She was admitted for altered mentation and underwent neurologic evaluation with Dr. Rain. The patient was diagnosed to have metabolic encephalopathy and has been neurologically stable. 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 She was continued on levofloxacin IV and Flagyl. Psychiatric consult was done and the patient was diagnosed with delirium and was continued on mirtazapine 30 mg at bedtime; however, dosage was decreased to 15 mg at bedtime and continued on Namenda 5 mg b.i.d. and Aricept 5 mg at bedtime. Mirtazapine was eventually increased to [address] Jones was consulted. The patient was debilitated and continued with cognitive dysfunction. He was asked to assess possible G-tube placement as the patient had failure to thrive, dementia, and poor oral intake. The patient's daughter wants to see if the patient can still be fed by natural routes and was not agreeable to G-tube placement. Bedside swallow evaluation done. Recommended for quality of life. Consider liquefied pureed like with nectar-thick liquids and one-to-one feed and was eventually advanced to mechanical soft ground diet. She came in with a right heel deep tissue injury and wound care was provided. She was eventually discharged to SNF. CT of the abdomen done showed no evidence of acute abdominopelvic disease. DISPOSITION: The patient was discharged to SNF. FINAL DIAGNOSES: 1. Acute metabolic encephalopathy. 2. Dehydration. 3. Sepsis. 4. Urinary tract infection with E. coli. 5. Acute renal failure. 6. Delirium. 7. Hypertensive heart disease. 8. Hypokalemia. 9. Right heel deep tissue injury, present on admission. Pete Martínez M.D. I have been assigned to dictate discharge summary on this account and I was not involved in the patient's management. Juliana Whitlock N.P. DR: LEA JOB#: [id number] CC:
== END 2016-07-27 17:09 | DRG 871 ==
LOC: 2E 20:48 → 4E 07-23 22:35
DX: A41.9 Sepsis, unspecified organism (principal); G92 Toxic encephalopathy; N17.9 Acute kidney failure, unspecified; I13.0 Hypertensive heart and chronic kidney disease with heart failure and stage 1 through stage 4 chronic kidney disease, or unspecified chronic kidney disease; I50.32 Chronic diastolic (congestive) heart failure; N39.0 Urinary tract infection, site not specified; E87.2 Acidosis; E44.1 Mild protein-calorie malnutrition; F05 Delirium due to known physiological condition; I82.4Z9 Acute embolism and thrombosis of unspecified deep veins of unspecified distal lower extremity; Z68.21 Body mass index [BMI] 21.0-21.9, adult; R62.7 Adult failure to thrive; E86.0 Dehydration; B96.20 Unspecified Escherichia coli [E. coli] as the cause of diseases classified elsewhere; E87.6 Hypokalemia; N18.9 Chronic kidney disease, unspecified; Z86.718 Personal history of other venous thrombosis and embolism; F03.90 Unspecified dementia, unspecified severity, without behavioral disturbance, psychotic disturbance, mood disturbance, and anxiety; R19.7 Diarrhea, unspecified; F32.9 Major depressive disorder, single episode, unspecified
CPT/HCPCS: 36415; 71010; 74176; 80053; 81001; 82306; 82378; 82607; 83735; 83880; 84165; 84484; 85025; 85651; 86039; 86300; 86301; 87045; 87081; 87086; 87181; 87324; 93005; 95819; J2405

== ENCOUNTER 2016-08-10 15:01 | Inpatient (IN) | payer MEDICARE, MEDICAID ==
[~2016-08-10] VITALS: Ht 165.1 cm; Wt 52.6 kg
[~2016-08-10 15:01] MED LIST changes: +ACETAMINOPHEN650 MG RECTAL; +ARICEPT5 MG ORAL; +MIRTAZAPINE30 MG ORAL; +NAMENDA10 MG ORAL; +NORVASC5 MG ORAL; +PROTONIX40 MG ORAL
[2016-08-10] MEDS ORDERED: Tubing IV Secondary IV ONE (17:26)
[2016-08-10] MEDS ORDERED: Sterile Water Irrig 1000ml IRRIG ONE (17:26)
[2016-08-10] MEDS ORDERED: D5NS 1000ml IV ONE (17:26)
[2016-08-10] MEDS ORDERED: PERCOCET 10-321 EACH ORAL (18:20)
[2016-08-10] MEDS ORDERED: MIRTAZAPINE15 MG ORAL (18:20)
[2016-08-10] MEDS ORDERED: MOBIC7.5 MG ORAL (18:20)
[2016-08-10] MEDS ORDERED: BICITRA30 ML ORAL (18:20)
[2016-08-10] MEDS ORDERED: PRAVASTATIN SOD40 M1 ORAL (18:20)
[2016-08-10] MEDS ORDERED: HYDRALAZINE HCL10 MG ORAL (18:20)
[2016-08-10 18:24] VITALS: BP 134/78
[2016-08-10 20:42] VITALS: BP 142/79
[2016-08-10] MEDS: Memantine 5 MG TAB ORAL SCH (20:54)
[2016-08-10] MEDS: Donepezil 5mg Tab ORAL SCH (20:56)
[2016-08-10] MEDS: D5NS 1,000 ML IV SCH (20:56)
--- NOTE | 2016-08-10 21:03 | General Progress Note ---
Assessment/Plan Assessment/Plan GI CONSULT Dictated PEG in am Elianayulianajohn Subjective Allergies: Coded Allergies: No Known Allergies (Verified Allergy, Mild, 05/08/06) Objective Last 24 Hour Vital Signs Date Time Temp Pulse Resp B/P Pulse Ox O2 Delivery O2 Flow Rate FiO2 08/10/16 20:54 95 142/79 08/10/16 20:42 97.9 95 20 142/79 100 Room Air 08/10/16 18:24 97.7 94 19 134/78 97 Room Air Height (Feet): 5 Height (Inches): 1.00 Weight (Pounds): 116 SHANA PARISH Aug 10, 2016 21:03
[2016-08-10 21:47] LABS: BASOPHILS % (AUTO) 0.9 % (0.0-2.0); EOSINOPHILS % (AUTO) 3.9 % (0.0-3.0); LYMPHOCYTES % (AUTO) 31.9 % (20.0-45.0); MEAN CORPUSCULAR HGB CONC 32.2 G/DL (32.0-36.0); MEAN CORPUSCULAR VOLUME 90 FL (80-99); MEAN PLATELET VOLUME 5.6 FL (6.5-10.1); MONOCYTES % (AUTO) 4.5 % (1.0-10.0); NEUTROPHILS % (AUTO) 58.8 % (45.0-75.0); PLATELET COUNT 329 K/UL (150-450); RED CELL DISTRIBUTION WIDTH 17.1 % (11.6-14.8); WHITE BLOOD COUNT 12.4 K/UL (4.8-10.8)
[2016-08-10 21:57] LABS: INR 1.2 (0.9-1.1); PROTHROMBIN TIME 12.3 SEC (9.30-11.50)
[2016-08-10 22:04] LABS: ALANINE AMINOTRANSFERASE 5 U/L (3-33); ANION GAP 19 (5-15); ASPARTATE AMINO TRANSFERASE 22 U/L (5-40); CALCIUM 9.4 mg/dL (8.6-10.2); CARBON DIOXIDE 16 mEQ/L (20-30); CHLORIDE 100 mEQ/L (98-107); CREATININE 1.2 mg/dL (0.5-0.9); HEMOLYSIS 4; SODIUM 135 mEQ/L (135-145); TOTAL PROTEIN 7.2 g/dL (6.6-8.7)
[2016-08-11] VITALS (9 sets, daily range): BP systolic 115–140; BP diastolic 59–96
--- NOTE | 2016-08-11 01:15 | History and Physical Report ---
DATE OF ADMISSION: 08/10/2016 CHIEF COMPLAINT: Failure to thrive, dehydration, malnutrition, and weight loss. HISTORY OF PRESENT ILLNESS: The patient is an 89-year-old female. She has a history of hypertension, dementia, history of DVT status post inferior vena cava filter, fibromyalgia, osteoarthritis, hypertension, and hypothyroidism. She was transferred from a correction facility with complaints of failure to thrive and refusal to eat. The patient has had several months now of poor p.o. intake. She has lost a significant amount of weight. After discussing with the family members, the patient has elected for G-tube placement. The patient is now admitted for placement of the G-tube. PAST MEDICAL HISTORY: As above. PAST SURGICAL HISTORY: Includes partial resection of the colon. CURRENT MEDICATIONS: Reconciled and reviewed. ALLERGIES: None. FAMILY HISTORY: None. SOCIAL HISTORY: Negative for tobacco, ethanol, or drugs. REVIEW OF SYSTEMS: General: No fevers. No chills. Positive malaise and weakness. Positive weight loss. HEENT: No headaches or visual changes. Cardiopulmonary: No chest pain or shortness of breath. Gastrointestinal: No nausea or vomiting. Genitourinary: No urgency or frequency. Musculoskeletal: Positive joint pain. Neurologic: No evidence of seizures PHYSICAL EXAMINATION: VITAL SIGNS: Temperature 98 degrees, blood pressure 136/70, pulse 80, and respirations 20. GENERAL: The patient is well-developed female, in no apparent distress. HEART: Regular rate and rhythm. LUNGS: Lungs are clear. ABDOMEN: Soft, nontender, and nondistended. EXTREMITIES: Without clubbing, cyanosis, or edema. The patient moves all four extremities. NEUROLOGIC: Answers simple questions. Follows commands. LABORATORY DATA: Laboratories done at an outside hospital show a troponin of 0.01 and natriuretic peptide less than 10. INR is 1.2. PT of 14.6. PTT of 24. Lactic acid level was 1.8. White count was 10, hemoglobin 12, hematocrit 42, and platelet count of 277,000. UA showed 15 WBCs. Urine cultures are pending. Electrolytes, sodium 139, potassium 4.7, chloride 111, bicarb 17, BUN is 3, and creatinine is 1.2. Mag was 2.0. ASSESSMENT: This is an elderly female admitted with failure to thrive and poor p.o. intake and severe protein malnutrition. PLAN: The patient is stable for G-tube placement in the morning. Risk and benefits are discussed with the patient's daughters and they are in agreement. The patient is also in agreement. Continue current blood pressure regimen. Pete Martínez M.D. DR: ROBBY JOB#: [id number] CC:
[2016-08-11] MEDS ORDERED: ceFAZolin sod 1 GM in D5W 55 ML IVPB ONE (06:00)
[2016-08-11] MEDS ORDERED: Propofol 10mg/ml 20ml IV ONE (07:00)
--- NOTE | 2016-08-11 07:12 | Anethesia Preoperative Eval ---
Anesthesia Pre-op PMH/ROS General Date of Evaluation: Aug 11, 2016 Time of Evaluation: 07:00 Anesthesiologist: Mack ASA Score: ASA 3 Mallampati Score Class I : Soft palate, uvula, fauces, pillars visible Class II: Soft palate, uvula, fauces visible Class III: Soft palate, base of uvula visible Class IV: Only hard plate visible Mallampati Classification: Class II Surgeon: Robert Diagnosis: Anemia, failure to thrive Surgical Procedure: EGD, PEG Allergies: Coded Allergies: No Known Allergies (Verified Allergy, Mild, 05/08/06) Medications: see eMAR Past Medical History Cardiovascular: Reports: HTN, Denies: CAD, ND, arrhythmia, other, valve dz Pulmonary: Denies: COPD, RUSTAM, asthma, other Gastrointestinal/Genitourinary: Reports: CRI, Denies: ESRD, GERD, other Neurologic/Psychiatric: Reports: dementia, Denies: CVA, TIA, depression/anxiety, other Endocrine: Reports: hypothyroidism, Denies: DM, other, steroids HEENT: Denies: YOMBA SHOSHONE (L), YOMBA SHOSHONE (R), cataract (L), cataract (R), glaucoma, other Hematology/Immune: Reports: DVT, anemia, Denies: bleeding disorder, other Musculoskeletal/Integumentary: Denies: DDD, DJD, OA, RA, edema, other PMH Narrative: HTN, hypothyroid, CRI, DVT, PE, Dementia PSxH Narrative: IVC filter Anesthesia Pre-op Phys. Exam Physician Exam Last Vital Signs Date Time Temp Pulse Resp B/P Pulse Ox O2 Delivery O2 Flow Rate FiO2 08/11/16 01:14 97.8 78 20 140/80 97 Room Air Constitutional: NAD Neurologic: CN 2-12 intact Cardiovascular: RRR, no M/R/G Respiratory: CTA Gastrointestinal: S/NT/ND Airway Exam Mallampati Score: Class II MO: full ROM: full Anesthesia Pre-op A/P Labs Hematology Test 08/10/16 21:20 White Blood Count 12.4 K/UL (4.8-10.8) H Red Blood Count 4.40 M/UL (4.20-5.40) Hemoglobin 12.8 G/DL (12.0-16.0) Hematocrit 39.6 % (37.0-47.0) Mean Corpuscular Volume 90 FL (80-99) Mean Corpuscular Hemoglobin 29.0 PG (27.0-31.0) Mean Corpuscular Hemoglobin Concent 32.2 G/DL (32.0-36.0) Red Cell Distribution Width 17.1 % (11.6-14.8) H Platelet Count 329 K/UL (150-450) Mean Platelet Volume 5.6 FL (6.5-10.1) L Neutrophils (%) (Auto) 58.8 % (45.0-75.0) Lymphocytes (%) (Auto) 31.9 % (20.0-45.0) Monocytes (%) (Auto) 4.5 % (1.0-10.0) Eosinophils (%) (Auto) 3.9 % (0.0-3.0) H Basophils (%) (Auto) 0.9 % (0.0-2.0) Coagulation Test 08/10/16 21:20 Prothrombin Time 12.3 SEC (9.30-11.50) H Prothromb Time International Ratio 1.2 (0.9-1.1) H Activated Partial Thromboplast Time 27 SEC (23-33) Chemistry Test 08/10/16 21:20 Sodium Level 135 mEQ/L (135-145) Potassium Level 4.0 mEQ/L (3.4-4.9) Chloride Level 100 mEQ/L (98-107) Carbon Dioxide Level 16 mEQ/L (20-30) L Anion Gap 19 (5-15) H Blood Urea Nitrogen 4 mg/dL (7-23) L Creatinine 1.2 mg/dL (0.5-0.9) H Estimat Glomerular Filtration Rate mL/min (>60) Glucose Level 97 mg/dL (74-106) Calcium Level 9.4 mg/dL (8.6-10.2) Total Bilirubin 0.4 mg/dL (0.0-1.2) Aspartate Amino Transf (AST/SGOT) 22 U/L (5-40) Alanine Aminotransferase (ALT/SGPT) 5 U/L (3-33) Alkaline Phosphatase 141 U/L (35-104) H Total Protein 7.2 g/dL (6.6-8.7) Albumin 3.7 g/dL (3.5-5.2) Globulin 3.5 g/dL Albumin/Globulin Ratio 1.0 (1.0-2.7) Studies Pre-op Studies: EKG - NSR, NSSTTW changes Risk Assessment & Plan Assessment: Failure to thrive Plan: GA, TIVA Status Change Before Surgery: No Pre-Antibiotics Drug: None RILEY HOOKS M.D. Aug 11, 2016 07:12
--- NOTE | 2016-08-11 07:13 | Immediate Post-Op Evaluation ---
Immediate Post-Op Evalulation Immediate Post-Op Evalulation Procedure: EGD, PEG Date of Evaluation: Aug 11, 2016 Time of Evaluation: 07:47 IV Fluids: 350 Blood Pressure Systolic: 115 Blood Pressure Diastolic: 69 Pulse Rate: 90 Respiratory Rate: 22 O2 Sat by Pulse Oximetry: 98 Temperature (Fahrenheit): 97.0 Pain Score (1-10): 0 Nausea: No Vomiting: No Complications No complication Patient Status: awake, patent, none Hydration Status: adequate Drug: None RILEY HOOKS M.D. Aug 11, 2016 07:13
--- NOTE | 2016-08-11 07:13 | General Progress Note ---
Assessment/Plan Problem List: (1) Failure to thrive in adult ICD Codes: R62.7 - Failure to thrive in adult SNOMED: 420203837 (2) UTI (lower urinary tract infection) ICD Codes: N39.0 - UTI (lower urinary tract infection) SNOMED: 4888025 (3) Encephalopathy acute ICD Codes: G93.40 - Encephalopathy acute SNOMED: 2173926 Status: stable Assessment/Plan ivf stable for gt GT today follow up ucx- done at outside hospital ?abx Subjective ROS Limited/Unobtainable: No Constitutional: Reports: malaise, weakness HEENT: Reports: no symptoms Cardiovascular: Reports: no symptoms Respiratory: Reports: no symptoms Gastrointestinal/Abdominal: Reports: poor appetite Genitourinary: Reports: no symptoms Neurologic/Psychiatric: Reports: pre-existing deficit Endocrine: Reports: no symptoms Hematologic/Lymphatic: Reports: no symptoms Allergies: Coded Allergies: No Known Allergies (Verified Allergy, Mild, 05/08/06) All Systems: reviewed and negative except above Subjective npo for GT. w/o complaints. no cp/sob. Objective Last 24 Hour Vital Signs Date Time Temp Pulse Resp B/P Pulse Ox O2 Delivery O2 Flow Rate FiO2 08/11/16 01:14 97.8 78 20 140/80 97 Room Air 08/10/16 21:55 97.9 08/10/16 20:54 95 142/79 08/10/16 20:42 97.9 95 20 142/79 100 Room Air 08/10/16 18:24 97.7 94 19 134/78 97 Room Air Intake and Output 08/10/16 08/11/16 19:00 07:00 Intake Total 730 ml Balance 730 ml Intake IV Total 730 ml # Voids 1 # Bowel Movements 1 1 Laboratory Tests 08/10/16 21:20: White Blood Count 12.4H, Red Blood Count 4.40, Hemoglobin 12.8, Hematocrit 39.6 , Mean Corpuscular Volume 90, Mean Corpuscular Hemoglobin 29.0, Mean Corpuscular Hemoglobin Concent 32.2, Red Cell Distribution Width 17.1H, Platelet Count 329, Mean Platelet Volume 5.6L, Neutrophils (%) (Auto) 58.8, Lymphocytes (%) (Auto) 31.9, Monocytes (%) (Auto) 4.5, Eosinophils (%) (Auto) 3.9H, Basophils (%) (Auto) 0.9, Prothrombin Time 12.3H, Prothromb Time International Ratio 1.2H, Activated Partial Thromboplast Time 27, Sodium Level 135, Potassium Level 4.0, Chloride Level 100, Carbon Dioxide Level 16L, Anion Gap 19H, Blood Urea Nitrogen 4L, Creatinine 1.2H, Estimat Glomerular Filtration Rate , Glucose Level 97, Calcium Level 9.4, Total Bilirubin 0.4, Aspartate Amino Transf (AST/SGOT) 22, Alanine Aminotransferase (ALT/SGPT) 5, Alkaline Phosphatase 141H, Total Protein 7.2, Albumin 3.7, Globulin 3.5, Albumin/ Globulin Ratio 1.0 Height (Feet): 5 Height (Inches): 5.00 Weight (Pounds): 116 General Appearance: WD/WN, alert, cachetic, thin EENT: PERRL/EOMI Neck: normal alignment, supple Cardiovascular: normal rate, regular rhythm Respiratory/Chest: chest wall non-tender, lungs clear, normal breath sounds, no respiratory distress, no accessory muscle use Abdomen: normal bowel sounds, non tender, soft, no organomegaly Edema: no edema noted Arm (L), no edema noted Arm (R), no edema noted Leg (L), no edema noted Leg (R), no edema noted Pedal (L), no edema noted Pedal (R), no edema noted 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
[2016-08-11] MEDS ORDERED: NS 550ML IV ONE (07:15)
--- NOTE | 2016-08-11 07:16 | Pre-Procedure Note/Attestation ---
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 I attest that, if there was a reasonable possibility of needing a blood transfusion, the patient (or the patient's legal sales representative groceries) was given the [facility] standardized written summary, pursuant to the [place] Blood Safety Act ([place] Health and Safety Code # 1645, as amended). I attest that I re-evaluated the patient just prior to the surgery and that there has been no change in the patient's H&P, except as documented below: SHANA PARISH Aug 11, 2016 07:16
--- NOTE | 2016-08-11 07:45 | Consultation ---
DATE OF CONSULTATION: 08/10/2016 GASTROENTEROLOGY CONSULTATION CONSULTING PHYSICIAN: José Jones M.D. REFERRING PHYSICIAN: Pete Martínez M.D. CHIEF COMPLAINT: "I was asked to see this patient by Dr. Pete Martínez for evaluation of gastrostomy tube placement." HISTORY OF PRESENT ILLNESS: The patient is a debilitated 89-year-old -[place] woman with mild degree of cognitive dysfunction who was brought into the hospital due to failure to thrive and poor oral intake. The patient was seen recently and discharged for a similar diagnosis. At that time, she was felt to have transient altered mental status, and therefore no aggressive measures were taken. However, the patient remains with poor appetite. She has become malnourished, has lost weight, eats approximately 15% of her meals. When asked, she does not offer any reason, but just states, "I don't want to eat." She denies any abdominal pain, nausea, or vomiting. On previous admission, she had urinary tract infection which was felt to be an acute problem that could be possibly treated and improved. PAST MEDICAL HISTORY: 1. History of failure to thrive. 2. Mild dementia. 3. Cardiomyopathy. 4. Hypertension. FAMILY HISTORY: Noncontributory. SOCIAL HISTORY: The patient resides in a jail at this time, although previously she resided in her home. She has no history of smoking or drinking. REVIEW OF SYSTEMS: Otherwise negative. PHYSICAL EXAMINATION: GENERAL: Thin, -[place] woman, in no distress. VITAL SIGNS: Noted. . HEENT: Normocephalic and atraumatic. Sclerae anicteric. Oropharynx clear. NECK: Supple. CHEST: Clear to auscultation. CARDIOVASCULAR: Regular rate. ABDOMEN: Soft. There is a long midline incision from past history of surgery of unclear type. EXTREMITIES: No edema. NEUROLOGIC: Nonfocal, although the patient has very short responses with not much information. LABORATORY DATA: Pending at the time of this dictation. ASSESSMENT: The patient has progressive functional decline. The patient has become malnourished and is a reasonable candidate to undergo gastrostomy tube placement for supplemental nutrition and long-term access. The patient will undergo fashion to supplement her oral intake. The indications, risks, alternatives, and possible complications of the procedure including but not limited to bleeding, infection, perforation, , and anesthesia complications were explained to the patient and daughter and informed consent was obtained. RECOMMENDATIONS: 1. NPO after midnight. 2. Gastrostomy tube placement tomorrow morning. 3. Check all laboratory parameters. 4. IV fluids. Thank you for asking me to participate in the care of this patient. José Jones M.D. DR: KAREN JOB#: [id number] CC:
--- NOTE | 2016-08-11 08:21 | Endoscopy Procedure Note ---
Endoscopy Procedure Note Indication for Procedure: anorexia, dysophagia Procedures Performed: EGD, PEG Operative Findings/Diagnosis: PEG Specimen: none Pt Tolerated Procedure Well: Yes Estimated Blood Loss: minimal Anesthesiologist: see report Anesthesia: MAC Medication Given: see anesthesia record Implant(s) used?: No 50 yrs or older w/o bx or poly: Not Applicable 10yrs. F/U not recommended: Not Applicable If not recommended, why?: SHANA PARISH Aug 11, 2016 08:21
--- NOTE | 2016-08-11 08:29 | Brief Operative Note ---
Immediate Post Operative Note Operative Note Chief Complaint: malnutrition Pre-op Diagnosis: anorexia dysphagia Procedure: EGD/PEG Post-op Diagnosis: PEG Post-op Diagnosis: same as pre-op plus Surgeon: beny Anesthesiologist: see report Anesthesia: MAC, moderate sedation Specimen: none Complications: none Condition: stable Estimated Blood Loss: none Drains: none Implant(s) used?: No SHANA PARISH Aug 11, 2016 08:29
--- NOTE | 2016-08-11 08:34 | General Progress Note ---
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) Recommendations - NPO today - restart PO diet in am - d/c planning for tomorrow - suggest night cycled TF after discharge, with daytime PO diet - check GGT Subjective Allergies: Coded Allergies: No Known Allergies (Verified Allergy, Mild, 05/08/06) Subjective Above noted had PEG placed earlier today Objective Last 24 Hour Vital Signs Date Time Temp Pulse Resp B/P Pulse Ox O2 Delivery O2 Flow Rate FiO2 08/11/16 07:46 90 22 98 08/11/16 07:42 88 20 116/66 100 Room Air 08/11/16 07:37 97.0 84 20 115/69 100 Simple Mask 8.0 08/11/16 01:14 97.8 78 20 140/80 97 Room Air 08/10/16 21:55 97.9 08/10/16 20:54 95 142/79 08/10/16 20:42 97.9 95 20 142/79 100 Room Air 08/10/16 18:24 97.7 94 19 134/78 97 Room Air Intake and Output 08/10/16 08/11/16 19:00 07:00 Intake Total 730 ml Balance 730 ml Intake IV Total 730 ml # Voids 1 # Bowel Movements 1 1 Laboratory Tests 08/10/16 21:20: White Blood Count 12.4H, Red Blood Count 4.40, Hemoglobin 12.8, Hematocrit 39.6 , Mean Corpuscular Volume 90, Mean Corpuscular Hemoglobin 29.0, Mean Corpuscular Hemoglobin Concent 32.2, Red Cell Distribution Width 17.1H, Platelet Count 329, Mean Platelet Volume 5.6L, Neutrophils (%) (Auto) 58.8, Lymphocytes (%) (Auto) 31.9, Monocytes (%) (Auto) 4.5, Eosinophils (%) (Auto) 3.9H, Basophils (%) (Auto) 0.9, Prothrombin Time 12.3H, Prothromb Time International Ratio 1.2H, Activated Partial Thromboplast Time 27, Sodium Level 135, Potassium Level 4.0, Chloride Level 100, Carbon Dioxide Level 16L, Anion Gap 19H, Blood Urea Nitrogen 4L, Creatinine 1.2H, Estimat Glomerular Filtration Rate , Glucose Level 97, Calcium Level 9.4, Total Bilirubin 0.4, Aspartate Amino Transf (AST/SGOT) 22, Alanine Aminotransferase (ALT/SGPT) 5, Alkaline Phosphatase 141H, Total Protein 7.2, Albumin 3.7, Globulin 3.5, Albumin/ Globulin Ratio 1.0 Height (Feet): 5 Height (Inches): 5.00 Weight (Pounds): 116 Objective WDWN NCAT supple CTA RRR abd soft/flat, (+) PEG no edema SHANA PARISH Aug 11, 2016 08:34
[2016-08-11] MEDS: Memantine 5 MG TAB ORAL SCH ×3 (09:00→18:19)
[2016-08-11] MEDS: Aspirin Baby 81mg ORAL SCH ×2 (09:00→09:44)
[2016-08-11] MEDS: Heparin 5000 units/ml inj SUBQ SCH ×2 (09:00→20:22)
[2016-08-11] MEDS: Sodium Citrate 30ml ORAL SCH ×3 (09:00→18:19)
[2016-08-11] MEDS: D5NS 1,000 ML IV SCH ×2 (09:44→23:17)
--- NOTE | 2016-08-11 11:42 | Wound Care Consultation ---
Wound Assessment Wound Assessment #1: Wound Present on Admission: Yes New Wound: No Status Change of Wound: No Wound Location Body Site Modif: mid Wound Location Body Site: sacral Wound Type: pressure ulcer Irene Test: Does not Irene Pressure Ulcer Stage: deep tissue injury Wound Thickness: Full Thickness Wound Length: 4.5 Wound Width: 4.5 Wound Depth: utd Percent of Wound Purple/Maroon: 100 Wound Drainage Amount: None Wound Drainage Odor: None/Absent Tissue Surrounding Wound: Erythemic Wound General Appearance: Reddened - dark purple Wound Assessment #2: Wound Number: #2 Wound Present on Admission: Yes New Wound: No Status Change of Wound: No Wound Location Body Site Modif: left Wound Location Body Site: heel Wound Type: pressure ulcer Irene Test: Does not Irene Pressure Ulcer Stage: deep tissue injury Wound Thickness: Full Thickness Wound Length: 2.5 Wound Width: 3.0 Wound Depth: utd Percent of Wound Black/Brown: 100 Wound Drainage Amount: None Wound Drainage Odor: None/Absent Tissue Surrounding Wound: Intact Wound Assessment #3: Wound Number: #3 Wound Present on Admission: Yes New Wound: No Status Change of Wound: No Wound Location Body Site Modif: right Wound Location Body Site: heel Wound Type: pressure ulcer Irene Test: Does not Irene Pressure Ulcer Stage: deep tissue injury Wound Thickness: Full Thickness Wound Length: 2.0 Wound Width: 2.0 Wound Depth: utd Percent of Wound Purple/Maroon: 100 Wound Drainage Amount: None Wound Drainage Odor: None/Absent Tissue Surrounding Wound: Intact Wound Comment #1 Sacral DTI pressure ulcer dark purple in color #2 Left heel DTI brown in color pressure ulcer #3 Right heel DTI brown in color pressure ulcer Recommendation -Local wound care per protocol for DTI pressure ulcer -Keep clean and dry -Turn and reposition -Low air loss mattress -Offload both heels -Heel protector on both heels -Optimize nutrition -Assess and f/u accordingly for any changes BONNY SKELTON RN Aug 11, 2016 11:42
[2016-08-11] MEDS: Morphine Sulfate 2mg/ml Inj IVP PRN ×2 (14:00→18:20)
[2016-08-11] MEDS: Donepezil 5mg Tab ORAL SCH (20:22)
--- NOTE | 2016-08-12 02:00 | Consultation ---
DATE OF CONSULTATION: CONSULTING PHYSICIAN: ATTENDING PHYSICIAN: REFERRING PHYSICIAN: HISTORY OF PRESENT ILLNESS: The patient is a 89-year-old female who is familial from the previous hospitalization. The patient has history of multiple medical problems including hypertension, dementia, and DVT. The patient has status post inferior vena cava filter and has history of arthritis, hypertension, and hypothyroidism. The patient presenting with failure to thrive and malnutrition. During the past hospitalization, she was started on Remeron. During the evaluation patient is denying any depressive symptoms, however, presents with decreased energy and decreased appetite as well as poor cognition. No suicidal or homicidal ideation. No manic or psychotic symptoms. PAST PSYCHIATRIC HISTORY: Diagnosed with depression in the past. PAST MEDICAL HISTORY: As above. SUBSTANCE USE HISTORY: None. MENTAL STATUS EXAMINATION: Alert and oriented to self. Mood is irritable. Affect is constricted. Congruent mood. Thought process, there is a paucity of thought content. Thought content, no suicidal or homicidal ideation. ASSESSMENT: [place] I Major depressive disorder and dementia. [place] II Deferred. [place] III As above. [place] IV Low. [place] V 30. PLAN: 1. We will continue the Remeron with 30 milligram at bedtime. 2. The patient is a candidate for G-tube. 3. We will continue follow and monitor patient symptoms. Ricco Reid M.D. DR: [place] JOB#: [id number] CC:
[2016-08-12 04:00] VITALS: BP 128/73
--- NOTE | 2016-08-12 07:42 | General Progress Note ---
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0 83 20 126/68 97 Room Air 08/11/16 08:04 83 20 124/64 97 Room Air 08/11/16 08:00 98.1 79 20 124/59 94 Room Air 08/11/16 07:46 90 22 98 08/11/16 07:42 88 20 116/66 100 Room Air Intake and Output 08/11/16 08/12/16 19:00 07:00 Intake Total 1075 ml 900 ml Balance 1075 ml 900 ml Intake IV Total 1075 ml 900 ml # Voids 3 1 Laboratory Tests 08/12/16 05:45: Gamma Glutamyl Transpeptidase 215H Height (Feet): 5 Height (Inches): 5.00 Weight (Pounds): 116 General Appearance: no apparent distress EENT: normal ENT inspection Neck: supple Cardiovascular: normal rate Respiratory/Chest: decreased breath sounds Abdomen: normal bowel sounds, non tender, soft Extremities: non-tender LORI NUNES Aug 12, 2016 07:42
[2016-08-12 08:11] VITALS: BP 141/65
[2016-08-12] MEDS: Sodium Citrate 30ml ORAL SCH ×2 (08:17→17:26)
[2016-08-12] MEDS: Memantine 5 MG TAB ORAL SCH ×2 (08:17→17:26)
[2016-08-12] MEDS: Aspirin Baby 81mg ORAL SCH (08:17)
[2016-08-12] MEDS: Morphine Sulfate 2mg/ml Inj IVP PRN ×3 (08:18→17:06)
[2016-08-12] MEDS: Heparin 5000 units/ml inj SUBQ SCH ×2 (08:19→20:44)
[2016-08-12 11:23] VITALS: BP 129/69
[2016-08-12] MEDS: D5NS 1,000 ML IV SCH ×2 (12:04→17:29)
[2016-08-12 15:14] VITALS: BP 137/56
[2016-08-12 20:00] VITALS: BP 128/69
[2016-08-12] MEDS: Donepezil 5mg Tab ORAL SCH (20:42)
[2016-08-13] VITALS: BP 125/61
[2016-08-13 04:00] VITALS: BP 128/77
[2016-08-13] MEDS: D5NS 1,000 ML IV SCH ×2 (06:01→20:02)
[2016-08-13 08:13] VITALS: BP 119/66
--- NOTE | 2016-08-13 08:20 | General Progress Note ---
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) Recommendations - GTF - d/c planning per primary team - suggest night cycled TF after discharge, with daytime PO diet Subjective ROS Limited/Unobtainable: No Allergies: Coded Allergies: No Known Allergies (Verified Allergy, Mild, 05/08/06) Objective Last 24 Hour Vital Signs Date Time Temp Pulse Resp B/P Pulse Ox O2 Delivery O2 Flow Rate FiO2 08/13/16 08:13 98.0 90 20 119/66 99 Room Air 08/13/16 04:00 97.7 94 20 128/77 99 Room Air 08/13/16 00:00 97.9 101 20 125/61 95 Room Air 08/12/16 20:00 98.2 94 20 128/69 98 Room Air 08/12/16 17:27 88 129/69 08/12/16 15:14 98.6 86 18 137/56 100 Room Air 08/12/16 11:23 99.5 88 19 129/69 88 Room Air Intake and Output 08/12/16 08/13/16 19:00 07:00 Intake Total 1067.5 ml 1180 ml Balance 1067.5 ml 1180 ml Intake Oral 240 ml Free Water 50 ml 100 ml IV Total 707.5 ml 900 ml Tube Feeding 70 ml 180 ml # Voids 2 # Bowel Movements 1 Height (Feet): 5 Height (Inches): 5.00 Weight (Pounds): 116 General Appearance: no apparent distress EENT: normal ENT inspection Neck: supple Cardiovascular: normal rate Respiratory/Chest: decreased breath sounds Abdomen: normal bowel sounds, non tender, soft Extremities: non-tender LORI NUNES Aug 13, 2016 08:20
[2016-08-13] MEDS: Heparin 5000 units/ml inj SUBQ SCH ×2 (08:23→20:46)
[2016-08-13] MEDS: Aspirin Baby 81mg ORAL SCH (08:23)
[2016-08-13] MEDS: Memantine 5 MG TAB ORAL SCH ×2 (08:24→17:03)
[2016-08-13] MEDS: Sodium Citrate 30ml ORAL SCH ×2 (08:29→17:04)
[2016-08-13] MEDS: Morphine Sulfate 2mg/ml Inj IVP PRN ×2 (08:42→14:55)
--- NOTE | 2016-08-13 08:48 | General Progress Note ---
Assessment/Plan Problem List: (1) Failure to thrive in adult ICD Codes: R62.7 - Failure to thrive in adult SNOMED: 552233292 (2) UTI (lower urinary tract infection) ICD Codes: N39.0 - UTI (lower urinary tract infection) SNOMED: 5618263 (3) Encephalopathy acute ICD Codes: G93.40 - Encephalopathy acute SNOMED: 2983236 Status: stable, progressing Assessment/Plan gt feeds po for oral grat pain rx dc planning Subjective ROS Limited/Unobtainable: No Constitutional: Reports: malaise, weakness HEENT: Reports: no symptoms Cardiovascular: Reports: no symptoms Respiratory: Reports: no symptoms Gastrointestinal/Abdominal: Reports: abdominal pain Genitourinary: Reports: no symptoms Neurologic/Psychiatric: Reports: pre-existing deficit Endocrine: Reports: no symptoms Hematologic/Lymphatic: Reports: no symptoms Allergies: Coded Allergies: No Known Allergies (Verified Allergy, Mild, 05/08/06) All Systems: reviewed and negative except above Subjective tolerating feeds. no chest pain no sob. no fevers or chills. Objective Last 24 Hour Vital Signs Date Time Temp Pulse Resp B/P Pulse Ox O2 Delivery O2 Flow Rate FiO2 08/13/16 08:24 89 120/70 08/13/16 08:13 98.0 90 20 119/66 99 Room Air 08/13/16 04:00 97.7 94 20 128/77 99 Room Air 08/13/16 00:00 97.9 101 20 125/61 95 Room Air 08/12/16 20:00 98.2 94 20 128/69 98 Room Air 08/12/16 17:27 88 129/69 08/12/16 15:14 98.6 86 18 137/56 100 Room Air 08/12/16 11:23 99.5 88 19 129/69 88 Room Air Intake and Output 08/12/16 08/13/16 19:00 07:00 Intake Total 1067.5 ml 1180 ml Balance 1067.5 ml 1180 ml Intake Oral 240 ml Free Water 50 ml 100 ml IV Total 707.5 ml 900 ml Tube Feeding 70 ml 180 ml # Voids 2 # Bowel Movements 1 Height (Feet): 5 Height (Inches): 5.00 Weight (Pounds): 116 General Appearance: WD/WN, alert Neck: supple Cardiovascular: regular rhythm Respiratory/Chest: normal breath sounds Abdomen: normal bowel sounds, non tender, soft, no organomegaly Edema: no edema noted Arm (L), no edema noted Arm (R), no edema noted Leg (L), no edema noted Leg (R), no edema noted Pedal (L), no edema noted Pedal (R), no edema noted 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
[2016-08-13 10:58] LABS: BASOPHILS % (AUTO) 0.4 % (0.0-2.0); EOSINOPHILS % (AUTO) 1.7 % (0.0-3.0); LYMPHOCYTES % (AUTO) 14.4 % (20.0-45.0); MEAN CORPUSCULAR HEMOGLOBIN 29.8 PG (27.0-31.0); MEAN CORPUSCULAR HGB CONC 33.1 G/DL (32.0-36.0); MEAN CORPUSCULAR VOLUME 90 FL (80-99); NEUTROPHILS % (AUTO) 80.6 % (45.0-75.0); PLATELET COUNT 286 K/UL (150-450); RED BLOOD COUNT 4.38 M/UL (4.20-5.40); RED CELL DISTRIBUTION WIDTH 16.8 % (11.6-14.8); WHITE BLOOD COUNT 11.3 K/UL (4.8-10.8)
[2016-08-13 11:15] LABS: ALANINE AMINOTRANSFERASE 5 U/L (3-33); ALBUMIN/GLOBULIN RATIO 0.9 (1.0-2.7); ANION GAP 19 (5-15); ASPARTATE AMINO TRANSFERASE 14 U/L (5-40); CALCIUM 8.3 mg/dL (8.6-10.2); CARBON DIOXIDE 21 mEQ/L (20-30); CHLORIDE 102 mEQ/L (98-107); CREATININE 1.1 mg/dL (0.5-0.9); HEMOLYSIS 6; POTASSIUM 2.9 mEQ/L (3.4-4.9); SODIUM 142 mEQ/L (135-145); TOTAL PROTEIN 6.3 g/dL (6.6-8.7)
[2016-08-13 12:02] VITALS: BP 116/62
[2016-08-13 16:12] VITALS: BP 130/67
[2016-08-13] MEDS ORDERED: Sterile Water Irrig 1000ml IRRIG ONE (18:46)
[2016-08-13] MEDS ORDERED: D5NS 1000ml IV ONE (18:46)
[2016-08-13 20:00] VITALS: BP 144/68
[2016-08-13] MEDS: Donepezil 5mg Tab ORAL SCH (20:43)
[2016-08-14] VITALS: BP 125/52
[2016-08-14 04:00] VITALS: BP 134/70
[2016-08-14 07:07] LABS: ANION GAP 16 (5-15); CARBON DIOXIDE 23 mEQ/L (20-30); CHLORIDE 105 mEQ/L (98-107); CREATININE 0.9 mg/dL (0.5-0.9); HEMOLYSIS 5; POTASSIUM 4.4 mEQ/L (3.4-4.9); SODIUM 144 mEQ/L (135-145)
[2016-08-14 08:13] VITALS: BP 135/62
[2016-08-14] MEDS: Morphine Sulfate 2mg/ml Inj IVP PRN ×2 (08:48→16:33)
[2016-08-14] MEDS: Aspirin Baby 81mg ORAL SCH (08:48)
[2016-08-14] MEDS: Memantine 5 MG TAB ORAL SCH ×2 (08:48→17:35)
[2016-08-14] MEDS: Heparin 5000 units/ml inj SUBQ SCH (08:53)
[2016-08-14] MEDS: D5NS 1,000 ML IV SCH (08:53)
[2016-08-14] MEDS: Sodium Citrate 30ml ORAL SCH ×2 (09:10→17:35)
[2016-08-14] MEDS ORDERED: D5NS 1000ml IV ONE (11:02)
[2016-08-14 12:00] VITALS: BP 145/75
[2016-08-14 15:43] VITALS: BP 150/75
[2016-08-14 17:35] VITALS: BP 150/75
--- NOTE | 2016-08-14 23:01 | General Progress Note ---
Assessment/Plan Assessment/Plan Assessment - Anorexia - Malnutrition - s/p PEG Recommendations - continue TF - monitor residuals - suggest night cycled TF after discharge, with daytime PO diet - d/c planning Subjective Allergies: Coded Allergies: No Known Allergies (Verified Allergy, Mild, 05/08/06) Subjective Above noted d/w RN seen earlier today tolerating TF now, but had some residuals yesterday Objective Last 24 Hour Vital Signs Date Time Temp Pulse Resp B/P Pulse Ox O2 Delivery O2 Flow Rate FiO2 08/14/16 17:35 97 150/75 08/14/16 15:43 96.4 97 18 150/75 98 Room Air 08/14/16 12:00 96.6 98 20 145/75 98 Room Air 08/14/16 08:48 93 135/62 08/14/16 08:13 97.5 93 18 135/62 98 Room Air 08/14/16 04:00 97.0 96 20 134/70 99 Room Air 08/14/16 00:00 98.1 98 20 125/52 100 Room Air Intake and Output 08/13/16 08/14/16 19:00 07:00 Intake Total 1720 ml 1785 ml Balance 1720 ml 1785 ml Free Water 150 ml 300 ml IV Total 900 ml 825 ml Tube Feeding 670 ml 660 ml # Voids 4 3 # Bowel Movements 1 1 Laboratory Tests 08/14/16 06:10: Sodium Level 144, Potassium Level 4.4#, Chloride Level 105, Carbon Dioxide Level 23, Anion Gap 16H, Blood Urea Nitrogen 7, Creatinine 0.9, Estimat Glomerular Filtration Rate , Glucose Level 116H, Calcium Level 9.0 Height (Feet): 5 Height (Inches): 5.00 Weight (Pounds): 116 Objective WDWN NCAT supple CTA RRR abd soft/flat, (+) PEG no edema SHANA PARISH Aug 14, 2016 23:01
--- NOTE | 2016-08-15 01:00 | Discharge Summary ---
DATE OF ADMISSION: 08/10/2016 DATE OF DISCHARGE: 08/14/2016 ADMISSION DIAGNOSES: 1. Failure to thrive. 2. Dehydration. 3. Acute renal failure. 4. Metabolic acidosis. 5. Dementia. 6. Deep vein thrombosis. 7. History of vena cava filter. DISCHARGE DIAGNOSES: 1. Failure to thrive. 2. Dehydration. 3. Acute renal failure. 4. Metabolic acidosis. 5. Dementia. 6. Deep vein thrombosis. 7. History of vena cava filter. HOSPITAL COURSE: The patient is a very pleasant female with complaints of failure to thrive and dehydration. She had evidence of urinary tract infection. She was also hypokalemic. She was admitted. She was placed on uncomplicated G-tube, which she tolerated well. She was treated with antibiotics for urinary tract infection. She had hypokalemia, which was also treated with potassium supplements. On discharge, she was doing well. She is tolerating feeds. DISCHARGE MEDICATIONS: Please see discharge medication list for discharge medications. DIET: G-tube feeding with . ACTIVITY: Ad-sean FOLLOWUP: The patient to followup in 1-2 days in the intermediate facility. Pete Martínez M.D. DR: OLIVIA JOB#: [id number] CC:
--- NOTE | 2016-08-15 01:30 | Progress Note ---
DATE: 08/13/2016 SUBJECTIVE: The patient is calm, cooperative. No behavior issues. Continues to present with decreased appetite and poor cognition, especially with memory. The patient has currently G-tube feeding. MENTAL STATUS EXAMINATION: The patient is alert and oriented times self and place. Mood is irritable. Affect is constricted, congruent with mood. Thought process is concrete. Thought content, there is no suicidal or homicidal ideations. ASSESSMENT: 1. Failure to thrive. 2. Depression. 3. Cognitive impairment. PLAN: 1. The patient will be continued on Remeron. 2. We will continue to provide and continue to follow and readjust the medications. Ricco Reid M.D. DR: UMAIR JOB#: [id number] CC:
--- NOTE | 2016-08-15 02:00 | Progress Note ---
DATE: 08/14/2016 SUBJECTIVE: The patient is stable at baseline. No behavior issues. G-tube feed. Poor insight and judgment. Improved mental condition. Still irritable. MENTAL STATUS EXAMINATION: Alert and oriented times self. Mood is irritable. Affect is constricted, congruent with mood. Thought process is concrete. Thought content, there is no suicidal or homicidal ideation. Cognition is impaired. ASSESSMENT: 1. Failure to thrive. 2. Depression. PLAN: The patient will be continued on current medication. Provide the patient with supportive therapy and reality orientation. Ricco Reid M.D. DR: UMAIR JOB#: [id number] CC:
--- NOTE | 2016-08-15 16:13 | Diagnostic Imaging Report ---
Indications: Dysphagia Technique: Multiphasic barium dysphagia study was performed under fluoroscopic control with Pretty Gallegos speech pathologist. Cinegraphic images were obtained. Total fluoroscopy time: 11.4 sec Dose-area product: 0.02 mGy-m2 Findings: Comparison: None Oral and pharyngeal phases of swallowing demonstrate multiple mechanical abnormalities, as enumerated on speech pathology evaluation form. The patient demonstrates trace superficial laryngeal penetration of thin liquid barium without aspiration, ejected. Patient refused further testing. There is trace barium coating of pharyngeal structures after swallowing.. Esophageal phase of swallowing demonstrates barium pooling. IMPRESSION: Abnormal oropharyngeal mechanics with superficial laryngeal penetration of thin liquid barium without aspiration. Patient refused further examination. Mild post swallow pharyngeal residue No obvious esophageal dysmotility. Recommendation per speech pathology evaluation form.
== END 2016-08-14 18:32 | DRG 640 ==
LOC: 4E 17:25 → INTOOBSV 17:25 → OBSVTOIN 17:25 → INTOOBSV 08-11 12:22
PROC: 0DH63UZ Insertion of Feeding Device into Stomach, Percutaneous Approach (ICD-10-PCS; principal; 2016-08-11 07:25)
DX: E86.0 Dehydration (principal); G93.40 Encephalopathy, unspecified; N17.9 Acute kidney failure, unspecified; E46 Unspecified protein-calorie malnutrition; R62.7 Adult failure to thrive; E87.2 Acidosis; I42.9 Cardiomyopathy, unspecified; N39.0 Urinary tract infection, site not specified; I82.509 Chronic embolism and thrombosis of unspecified deep veins of unspecified lower extremity; Z68.1 Body mass index [BMI] 19.9 or less, adult; F03.90 Unspecified dementia, unspecified severity, without behavioral disturbance, psychotic disturbance, mood disturbance, and anxiety; E87.6 Hypokalemia; E03.9 Hypothyroidism, unspecified; F32.9 Major depressive disorder, single episode, unspecified; G31.84 Mild cognitive impairment of uncertain or unknown etiology
CPT/HCPCS: 36415; 74230; 80048; 80053; 82977; 85025; 85610; 85730; 86850; 86900; 86901; 87324; 94003; 94150; 96360; 96374; 96375; C8957; J8499

== ENCOUNTER 2017-01-19 17:20 | Inpatient (IN) | payer MEDICARE, MEDICAID ==
[~2017-01-19] VITALS: Ht 162.6 cm; Wt 72.6 kg
[~2017-01-19 17:20] MED LIST changes: +BICITRA30 ML ORAL; +HYDRALAZINE HCL10 MG ORAL; +MIRTAZAPINE15 MG ORAL; +MOBIC7.5 MG ORAL; +PRAVASTATIN SOD40 M1 ORAL
--- NOTE | 2017-01-19 17:26 | Emergency Room Report ---
History of Present Illness General Chief Complaint: Chest Pain Source: Patient, PMD Present Illness HPI [id number] BIBEMS for chest pain for 2 hours and allegedly desaturation at SNF per EMR, patient had 94% sat on Room air PMHX depression, dementia, HTN Allergies: Coded Allergies: No Known Allergies (Verified , 05/08/06) Patient History Past Medical History: other - See hpI Past Surgical History: none Pertinent Family History: none Social History: Denies: smoking, alcohol use, drug use Now: No Immunizations: UTD Reviewed Nursing Documentation: PMH: Agreed, PSxH: Agreed Nursing Documentation-PMH Hx Cardiac Problems: Yes Hx Hypertension: Yes Hx Diabetes: Yes - Pre diabetes Hx Cancer: Yes Hx Gastrointestinal Problems: Yes Hx Neurological Problems: Yes - Encephalopathy Hx Dementia: Yes Hx Dizziness: Yes Hx Syncope: Yes Hx Headaches: Yes Hx Weakness: Yes Review of Systems All Other Systems: negative except mentioned in HPI Physical Exam Vital Signs Date Time Temp Pulse Resp B/P (MAP) Pulse Ox O2 Delivery O2 Flow Rate FiO2 01/19/17 17:17 92 16 98/62 99 Room Air Sp02 EP Interpretation: reviewed, normal General Appearance: normal inspection, well appearing, no apparent distress, alert, GCS 15, non-toxic Head: normocephalic, atraumatic Eyes: bilateral eye PERRL, bilateral eye EOMI ENT: normal ENT inspection, hearing grossly normal, normal voice Neck: normal inspection, full range of motion, supple, no bony tend Respiratory: normal inspection, lungs clear, normal breath sounds, no respiratory distress, no retraction, no accessory muscle use, no wheezing, speaking full sentences Cardiovascular #1: regular rate, rhythm, no edema Gastrointestinal: normal inspection, normal bowel sounds, non tender, soft, no guarding, no hernia Genitourinary: no CVA tenderness Musculoskeletal: normal inspection, back normal, normal range of motion, Ileana' s Sign negative Neurologic: normal inspection, alert, responsive, speech normal Psychiatric: normal inspection, judgement/insight normal, mood/affect normal Skin: normal inspection, normal color, no rash Medical Decision Making Diagnostic Impression: Primary Impression: Chest pain Qualified Codes: R07.9 - Chest pain, unspecified Additional Impressions: Hyponatremia Leukocytosis Qualified Codes: D72.829 - Elevated white blood cell count, unspecified ER Course Labs c./w hyponatremia 128. Has had HypoNa previously. Will HOLD on NS at this time. ECG is non-ischemic and troponin 0. Doubt ACS or PE given well appearance, stable vitals, and 4 hours+ of symptoms with initial trop already WNL. Per PMD Dr Martínez, has had complaints of chest pain previously Elevated leuks but CXR does not show PNA. Abd is soft, NT/ND. Doubt meningitis. Has not given urine. otherwise stable vitals, not septic appearing. Has had leukocytosis in the past. No Neutrophil shift so doubt sepsis at this time. Endorsed to Dr Martínez tele admit at 7pm as PMD EKG Diagnostic Results Rate: normal Rhythm: NSR ST Segments: no acute changes ASA given to the pt in ED: No Rhythm Strip Diag. Results EP Interpretation: yes Rate: 75 Rhythm: NSR, no PVC's, no ectopy Chest X-Ray Diagnostic Results Chest X-Ray Diagnostic Results : Chest X-Ray Ordered: Yes # of Views/Limited/Complete: 1 View Indication: Chest Pain EP Interpretation: Yes Interpretation: no consolidation, no effusion, no pneumothorax, no acute cardiopulmonary disease Impression: No acute disease Electronically Signed by: Dr Deirdre Aly MD Last Vital Signs Date Time Temp Pulse Resp B/P (MAP) Pulse Ox O2 Delivery O2 Flow Rate FiO2 01/19/17 17:17 92 16 98/62 99 Room Air Status: improved Disposition: ADMITTED INPATIENT Condition: Stable DEIRDRE ALY M.D. Jan 19, 2017 17:26
[2017-01-19 17:27] VITALS: BP 101/63
[2017-01-19] MEDS ORDERED: BENADRYL25 M3 GT (18:16)
[2017-01-19 18:25] LABS: BASOPHILS % (AUTO) 0.8 % (0.0-2.0); EOSINOPHILS % (AUTO) 1.9 % (0.0-3.0); LYMPHOCYTES % (AUTO) 17.4 % (20.0-45.0); MEAN CORPUSCULAR HEMOGLOBIN 31.1 PG (27.0-31.0); MEAN CORPUSCULAR HGB CONC 33.1 G/DL (32.0-36.0); MEAN CORPUSCULAR VOLUME 94 FL (80-99); MONOCYTES % (AUTO) 6.7 % (1.0-10.0); NEUTROPHILS % (AUTO) 73.2 % (45.0-75.0); PLATELET COUNT 419 K/UL (150-450); RED BLOOD COUNT 3.99 M/UL (4.20-5.40); RED CELL DISTRIBUTION WIDTH 12.9 % (11.6-14.8); WHITE BLOOD COUNT 15.1 K/UL (4.8-10.8)
[2017-01-19 18:33] LABS: INR 1.1 (0.9-1.1); PROTHROMBIN TIME 11.2 SEC (9.30-11.50)
[2017-01-19 18:34] LABS: ANION GAP 8 mmol/L (5-15); CALCIUM 9.1 MG/DL (8.5-10.1); CARBON DIOXIDE 28 MMOL/L (21-32); CHLORIDE 92 MMOL/L (98-107); CREATININE 1.3 MG/DL (0.55-1.30); POTASSIUM 4.9 MMOL/L (3.5-5.1); SODIUM 128 MMOL/L (136-145)
[2017-01-19 18:48] LABS: ALANINE AMINOTRANSFERASE 21 U/L (12-78); ALBUMIN/GLOBULIN RATIO 0.5 (1.0-2.7); ASPARTATE AMINO TRANSFERASE 30 U/L (15-37); CKMB 0.8 NG/ML (0.0-3.6); TOTAL PROTEIN 8.5 G/DL (6.4-8.2)
[2017-01-19] MEDS ORDERED: CALMOSEPTINE OI71 GM TP (19:14)
[2017-01-19] MEDS ORDERED: ACIDOPHILUS LA1 EAC1 ORAL (19:14)
[2017-01-19] MEDS ORDERED: DOCUSATE SODIU100 M2 ORAL (19:14)
[2017-01-19 19:19] VITALS: BP 94/52
[2017-01-19] MEDS ORDERED: MULTIVITAMINS1 EAC8 ORAL (19:22)
[2017-01-19] MEDS ORDERED: URSODIOL300 MG ORAL (19:22)
[2017-01-19] MEDS ORDERED: ROXICODONE5 MG ORAL (19:22)
[2017-01-19] MEDS ORDERED: PERIGUARD OINT100 GM TP (19:22)
[2017-01-19] MEDS ORDERED: A & D OINT1 APPLI1 (19:22)
[2017-01-19 20:17] VITALS: BP 114/59
[2017-01-19 20:20] VITALS: BP 107/81
[2017-01-19] MEDS ORDERED: Acetaminophen 650 MG SUPP RECTAL PRN (21:00)
[2017-01-19] MEDS ORDERED: NaCl 3% 500ml 250 ML IV ONE (22:30)
[2017-01-20] VITALS: BP 100/64
[2017-01-20] MEDS ORDERED: VITAMIN C500 M1 ORAL (03:08)
[2017-01-20 04:00] VITALS: BP 108/60
[2017-01-20 08:46] VITALS: BP 137/64
[2017-01-20 09:11] LABS: ALANINE AMINOTRANSFERASE 21 U/L (12-78); ALBUMIN/GLOBULIN RATIO 0.5 (1.0-2.7); ANION GAP 15 mmol/L (5-15); ASPARTATE AMINO TRANSFERASE 39 U/L (15-37); CALCIUM 9.4 MG/DL (8.5-10.1); CARBON DIOXIDE 20 MMOL/L (21-32); CHLORIDE 95 MMOL/L (98-107); CREATININE 1.4 MG/DL (0.55-1.30); POTASSIUM 5.2 MMOL/L (3.5-5.1); SODIUM 130 MMOL/L (136-145)
--- NOTE | 2017-01-20 09:22 | Diagnostic Imaging Report ---
Indication: Chest pain Technique: One view of the chest Comparison: 07/24/2016 Findings: Suboptimal inspiration. Lungs and pleural spaces are clear. Normal heart size. Inferior vena cava filter again noted. Gastrostomy noted. Tortuous calcified aorta. No significant change Impression: No acute process
[2017-01-20] MEDS: Pancrease Cap ORAL SCH ×3 (10:08→17:55)
[2017-01-20] MEDS: Ursodiol 300mg cap ORAL SCH ×3 (10:08→17:55)
[2017-01-20] MEDS: Docusate 100mg cap ORAL SCH ×2 (10:08→17:55)
[2017-01-20] MEDS: Aspirin Baby 81mg ORAL SCH (10:08)
[2017-01-20] MEDS: Multivitamin w/Minerals tab ORAL SCH (10:09)
[2017-01-20] MEDS: Heparin 5000 units/ml inj SUBQ SCH ×2 (10:10→20:20)
[2017-01-20] MEDS: oxyCODONE 5mg IR tab ORAL PRN (11:11)
[2017-01-20 12:03] VITALS: BP 108/69
--- NOTE | 2017-01-20 15:00 | History and Physical Report ---
DATE OF ADMISSION: 01/19/2017 CHIEF COMPLAINT: Hyponatremia and chest pain. HISTORY OF PRESENT ILLNESS: The patient is a pleasant 89-year-old female. She has a history of dementia, hypertension, and chronic kidney disease. She has a prior history of DVT status post IVC filter. She has a prior history of G-tube because of malnutrition. She presented with complaints of chest pain. According to the patient, she developed chest pain on the day of admission. She describes the pain as sharp, substernal, did not radiate. There is no diaphoresis. No nausea or vomiting. She was transferred to the emergency room. On evaluation there, EKG and troponin were negative. She was noted to be markedly hyponatremic with a sodium of 128. She has been started on hypertonic fluids, is now admitted for further evaluation and care. PAST MEDICAL HISTORY: As above. PAST SURGICAL HISTORY: G-tube. CURRENT MEDICATIONS: Reconciled and reviewed. ALLERGIES: None. FAMILY HISTORY: None. SOCIAL HISTORY: There is no known history of tobacco, ethanol, or drugs. REVIEW OF SYSTEMS: GENERAL: No fever or chills. HEENT: No headaches or visual changes. CARDIOPULMONARY: Positive chest pain, but no shortness of breath. GASTROINTESTINAL: No nausea or vomiting. GENITOURINARY: No urgency or frequency. MUSCULOSKELETAL: No joint pain or swelling. NEUROLOGIC: No evidence of seizures. PHYSICAL EXAMINATION: VITAL SIGNS: Temperature 98.7, pulse 74, respirations 16, and blood pressure 108/60. GENERAL: The patient is well-developed female, in no apparent distress. HEART: Regular rate and rhythm. LUNGS: Clear. ABDOMEN: Soft, nontender, nondistended. EXTREMITIES: Without clubbing, cyanosis, or edema. LABORATORY DATA: Labs showed sodium 128, potassium 4.9, and creatinine was 1.3. Coags are normal. White count was 15,000. ASSESSMENT: This is a pleasant female, admitted with complaints of chest pain: 1. Chest pain, doubt cardiac. 2. Leukocytosis, rule out urinary tract infection. 3. Hyponatremia. 4. History of chronic kidney disease. 5. Dementia. 6. Toxic metabolic encephalopathy. 7. History of deep venous thrombosis, status post inferior vena cava filter. PLAN: Hypertonic fluids. Follow up laboratories. Repeat enzymes. Check UA and culture and sensitivity. We will follow up pending chest x-ray. Cardiology and Renal consultations will be obtained. Pete Martínez M.D. DR: GOLDEN JOB#: [id number] CC:
[2017-01-20 16:36] VITALS: BP 98/51
[2017-01-20 20:39] VITALS: BP 134/63
[2017-01-21] VITALS (7 sets, daily range): BP systolic 120–158; BP diastolic 60–88
[2017-01-21] MEDS: oxyCODONE 5mg IR tab ORAL PRN (00:43)
--- NOTE | 2017-01-21 01:30 | Consultation ---
DATE OF CONSULTATION: 01/19/2017 CARDIOLOGY CONSULTATION CONSULTING PHYSICIAN: Han Capone M.D. REQUESTING PHYSICIAN: Pete Martínez M.D. REASON FOR CONSULTATION: Chest pain. HISTORY OF PRESENT ILLNESS: This is an 89-year-old female with history of hypertension and coronary atherosclerosis, who had several hours of chest pain and shortness of breath with hypoxia noted in the shelter facility and was transferred here for evaluation. Oxygen saturations on room air were noted to be 94%. In the emergency room, the patient's initial blood pressure was 98/62, heart rate 92, and respiratory rate 16. Chest x-ray revealed no acute process and her EKG revealed sinus rhythm with no acute ST or T-wave changes. Troponin level was zero. Since admission, the patient has not had any recurrence. Her troponin levels remained within normal range. I have been asked to assist with further cardiovascular care. PAST MEDICAL HISTORY: Dysphagia with G-tube, hypertensive heart disease, atherosclerotic cardiovascular disease, history of DVT and IVC filter, chronic kidney disease, cerebrovascular atherosclerosis with dementia, degenerative disk disease, degenerative valve disease, and osteoarthritis. MEDICATIONS: Medications prior to admission, reviewed and reconciled. ALLERGIES: None. SOCIAL HISTORY: Negative for smoking, alcohol, or substance abuse. FAMILY HISTORY: Notable for her daughter with premature coronary disease and hyperlipidemia. REVIEW OF SYSTEMS: No fevers or chills. No loss of vision or hearing. No leg swelling. No prior history of myocardial infarction. No history of rheumatic heart disease. No change in bowel habits although she has had constipation frequently in the past. No frequency or dysuria. She does have chronic back and joint pain. She has not had any seizures or strokes. There is no history of diabetes or thyroid impairment. PHYSICAL EXAMINATION: VITAL SIGNS: Blood pressure 114/56, pulse 93, respiratory rate 19, afebrile, room air oxygen saturation 99%. HEENT: Temporal wasting. Arcus senilis. Pale conjunctivae. Dry mucous membranes. No thrush. NECK: Supple. Jugular venous pressure normal. LUNGS: Clear. CHEST: Chest wall without tenderness. BREASTS: Without masses. CARDIAC: Regular rhythm and rate. Normal S1, S2 with a fourth heart sound. ABDOMEN: Soft. No focal tenderness. EXTREMITIES: Good pulses. Decreased capillary refill. No edema. LABORATORY DATA: Sodium 128, potassium 4.9, chloride 92, bicarbonate 28, BUN 47, creatinine 1.3. Albumin 2.8. White count 15.1, hemoglobin 12.4. IMPRESSION: 1. Noncardiac chest pain. 2. Prior history of deep venous thrombosis with inferior vena cava filter, cannot exclude acute pulmonary embolic event. 3. Hypovolemia and dehydration. 4. Acute on chronic kidney injury due to acute tubular necrosis. 5. Leukocytosis. 6. Hyponatremia. 7. Hypochloremia. 8. Moderate protein-calorie malnutrition. 9. Chronic diastolic congestive heart failure. 10. Cerebrovascular disease with dementia. 11. Dysphagia with gastrostomy tube. PLAN: Cardiac monitoring. Hypertonic saline hydration followed by isotonic saline hydration. G-tube nutrition, po nutrition as tolerated, replace electrolytes, titrate antiHTN and anti-failure regimen based on clinical parameters. Han Capone M.D. DR: Ed JOB#: [id number] CC: SARA
--- NOTE | 2017-01-21 04:00 | Progress Note ---
DATE: 01/20/2017 CARDIOLOGY PROGRESS NOTE SUBJECTIVE: Chest pain persists intermittently and is positional. No nausea, vomiting, or shortness of breath. The patient's electrolytes have improved with hypertonic intravenous fluids. OBJECTIVE: VITAL SIGNS: Earlier blood pressure 98/51, now 134/63, heart rate 83, respiratory rate 23, and afebrile. Monitor sinus with arrhythmia. LUNGS: Good breath sounds. No wheezing. CHEST: Chest wall tender to palpation. HEART: Regular rhythm and rate. Normal S1 and S2 with a fourth heart sound. ABDOMEN: Soft. No guarding or rebound. EXTREMITIES: No edema. LABORATORY DATA: Troponin is negative x2. Albumin 3.1. Sodium 130, potassium 5.2, chloride 95, bicarbonate 20, BUN 53, and creatinine 1.4. IMPRESSION: 1. Noncardiac chest pain. 2. History of deep vein thrombosis with inferior vena cava filter, possible meets pulmonary embolic event. 3. Hyponatremia, improved. 4. Hypochloremia, improved. 5. Acute on chronic renal failure due to acute tubular necrosis and hypovolemia. 6. Mild protein-calorie malnutrition. 7. Arteriosclerotic cardiovascular disease. 8. Leukocytosis with possible sepsis. 9. Single episode of hypotension, rule out early sepsis with shock. PLAN: 1. Continue saline hydration. 2. Await urine studies. 3. Analgesics. 4. DVT prophylaxis. 5. Saline hydration until the electrolytes are corrected and volume status as well as renal function normalized. 6. Maintain baseline antihypertensive regimen with hold parameters for low range blood pressure. 7. Hypotension can be treated with volume resuscitation. Han Capone M.D. : CELSA JOB#: [id number] CC:
[2017-01-21 04:37] LABS: APPEARANCE,URINE CLOUDY; KETONES,URINE NEGATIVE (NEGATIVE); LEUKOCYTE ESTERASE ,URINE 1+ (NEGATIVE); NITRITE,URINE POSITIVE (NEGATIVE); PH,URINE 7 (4.5-8.0); PROTEIN,URINE 2+ (NEGATIVE); UROBILINOGEN,URINE NORMAL MG/DL (0.0-1.0)
[2017-01-21 05:35] LABS: AMORPHOUS SEDIMENT,UR FEW /LPF; BACTERIA,URINE MANY /HPF; RBC,URINE 0-2 /HPF (0 - 2); SQUAMOUS EPITHELIAL CELL,UR MANY /LPF (NONE/OCC)
[2017-01-21 07:26] LABS: BASOPHILS % (AUTO) 1.1 % (0.0-2.0); EOSINOPHILS % (AUTO) 2.4 % (0.0-3.0); LYMPHOCYTES % (AUTO) 17.3 % (20.0-45.0); MEAN CORPUSCULAR HEMOGLOBIN 31.6 PG (27.0-31.0); MEAN CORPUSCULAR HGB CONC 33.9 G/DL (32.0-36.0); MEAN CORPUSCULAR VOLUME 93 FL (80-99); MEAN PLATELET VOLUME 5.5 FL (6.5-10.1); MONOCYTES % (AUTO) 5.7 % (1.0-10.0); NEUTROPHILS % (AUTO) 73.5 % (45.0-75.0); PLATELET COUNT 420 K/UL (150-450); RED BLOOD COUNT 3.63 M/UL (4.20-5.40); RED CELL DISTRIBUTION WIDTH 13.1 % (11.6-14.8); WHITE BLOOD COUNT 9.9 K/UL (4.8-10.8)
[2017-01-21 07:49] LABS: ALANINE AMINOTRANSFERASE 17 U/L (12-78); ALBUMIN/GLOBULIN RATIO 0.6 (1.0-2.7); ANION GAP 10 mmol/L (5-15); ASPARTATE AMINO TRANSFERASE 55 U/L (15-37); CALCIUM 9.1 MG/DL (8.5-10.1); CARBON DIOXIDE 24 MMOL/L (21-32); CHLORIDE 101 MMOL/L (98-107); CREATININE 1.2 MG/DL (0.55-1.30); POTASSIUM 4.1 MMOL/L (3.5-5.1); SODIUM 135 MMOL/L (136-145); TOTAL PROTEIN 8.3 G/DL (6.4-8.2)
[2017-01-21] MEDS: Docusate 100mg cap ORAL SCH ×2 (08:18→17:10)
[2017-01-21] MEDS: Aspirin Baby 81mg ORAL SCH (08:18)
[2017-01-21] MEDS: Pancrease Cap ORAL SCH ×3 (08:18→17:10)
[2017-01-21] MEDS: Ursodiol 300mg cap ORAL SCH ×3 (08:18→17:10)
[2017-01-21] MEDS: Multivitamin w/Minerals tab ORAL SCH (08:18)
[2017-01-21] MEDS: Heparin 5000 units/ml inj SUBQ SCH ×2 (08:22→21:17)
--- NOTE | 2017-01-21 08:45 | General Progress Note ---
Assessment/Plan Problem List: (1) Dehydration ICD Codes: E86.0 - Dehydration SNOMED: 92846136 (2) Sepsis ICD Codes: A41.9 - Sepsis SNOMED: 11762896 (3) ARF (acute renal failure) ICD Codes: N17.9 - ARF (acute renal failure) SNOMED: 14524197 (4) Altered mental state ICD Codes: R41.82 - Altered mental status, unspecified SNOMED: 372798865 (5) Chest pain ICD Codes: R07.9 - Chest pain, unspecified SNOMED: 99706714 Qualifiers: Qualified Codes: R07.9 - Chest pain, unspecified (6) Hyponatremia ICD Codes: E87.1 - Hypo-osmolality and hyponatremia SNOMED: 71103797 Status: stable Assessment/Plan cont ivf x 1 more day monitor labs gt feeds encourage pos retry dementia meds at snf cards follow up Subjective ROS Limited/Unobtainable: No Constitutional: Reports: malaise, weakness HEENT: Reports: no symptoms Cardiovascular: Reports: no symptoms Respiratory: Reports: no symptoms Gastrointestinal/Abdominal: Reports: poor appetite, poor fluid intake Genitourinary: Reports: no symptoms Neurologic/Psychiatric: Reports: pre-existing deficit Endocrine: Reports: no symptoms Hematologic/Lymphatic: Reports: anemia Allergies: Coded Allergies: No Known Allergies (Verified , 05/08/06) All Systems: reviewed and negative except above Subjective no events. tolerating noctural feeds, refusing pos. labs reviewed- better Objective Last 24 Hour Vital Signs Date Time Temp Pulse Resp B/P (MAP) Pulse Ox O2 Delivery O2 Flow Rate FiO2 01/21/17 04:00 96.8 89 24 131/78 96 Room Air 01/21/17 04:00 85 01/21/17 00:24 97.2 80 20 131/60 98 Room Air 01/21/17 00:00 89 01/20/17 20:39 97.0 83 23 134/63 97 Room Air 01/20/17 20:00 80 01/20/17 16:36 97.3 76 19 98/51 3.0 01/20/17 16:00 79 01/20/17 12:03 97.5 80 18 108/69 Room Air 01/20/17 12:00 81 01/20/17 08:46 96.4 70 19 137/64 Nasal Cannula 2.0 Laboratory Tests 01/21/17 03:41: Urine Color Pale yellow, Urine Appearance Cloudy, Urine pH 7, Urine Specific [place] 1.010, Urine Protein 2+H, Urine Glucose (UA) Negative, Urine Ketones Negative, Urine Occult Blood 2+H, Urine Nitrite PositiveH, Urine Bilirubin Negative, Urine Urobilinogen Normal, Urine Leukocyte Esterase 1+H, Urine RBC 0-2 , Urine WBC 2-4, Urine Squamous Epithelial Cells ManyH, Urine Amorphous Sediment FewH, Urine Bacteria ManyH 01/21/17 05:10: White Blood Count 9.9, Red Blood Count 3.63L, Hemoglobin 11.5L, Hematocrit 33.8L , Mean Corpuscular Volume 93, Mean Corpuscular Hemoglobin 31.6H, Mean Corpuscular Hemoglobin Concent 33.9, Red Cell Distribution Width 13.1, Platelet Count 420, Mean Platelet Volume 5.5L, Neutrophils (%) (Auto) 73.5, Lymphocytes ( %) (Auto) 17.3L, Monocytes (%) (Auto) 5.7, Eosinophils (%) (Auto) 2.4, Basophils (%) (Auto) 1.1, Sodium Level 135L, Potassium Level 4.1, Chloride Level 101, Carbon Dioxide Level 24, Anion Gap 10, Blood Urea Nitrogen 39H, Creatinine 1.2, Estimat Glomerular Filtration Rate , Glucose Level 105, Calcium Level 9.1, Magnesium Level 2.0, Total Bilirubin 0.3, Aspartate Amino Transf (AST /SGOT) 55H, Alanine Aminotransferase (ALT/SGPT) 17, Alkaline Phosphatase 146H, Total Protein 8.3H, Albumin 3.0L, Globulin 5.3, Albumin/Globulin Ratio 0.6L Height (Feet): 5 Height (Inches): 4.00 Weight (Pounds): 160 Objective GENERAL: The patient is well-developed female, in no apparent distress. HEART: Regular rate and rhythm. LUNGS: Clear. ABDOMEN: Soft, nontender, nondistended. EXTREMITIES: Without clubbing, cyanosis, or edema. AMALIA CLAY Jan 21, 2017 08:45
[2017-01-21] MEDS ORDERED: Sodium Citrate 30ml ORAL SCH (09:00)
--- NOTE | 2017-01-21 13:54 | Wound Care Consultation ---
Wound Assessment Wound Assessment #1: Wound Number: 1 Wound Present on Admission: Yes New Wound: No Status Change of Wound: No Wound Location Body Site Modif: mid Wound Location Body Site: sacral Wound Type: pressure ulcer Irene Test: Does not Irene Pressure Ulcer Stage: II Wound Thickness: Partial Thickness Wound Length: 0.5 Wound Width: 0.5 Wound Depth: less than 0.1 Percent of Wound [place]/Red: 100 Wound Drainage Description: Serosanguineous Wound Drainage Amount: Scant Wound Drainage Odor: None/Absent Tissue Surrounding Wound: full thickness scar tissue Wound General Appearance: Reddened, Draining Wound Assessment #2: Wound Number: 2 Wound Present on Admission: Yes New Wound: No Status Change of Wound: No Wound Location Body Site: perineal area Wound Type: chemical burn - with erosion Irene Test: Does not Irene Percent of Wound [place]/Red: 100 Wound Drainage Amount: None Wound Drainage Odor: None/Absent Tissue Surrounding Wound: Erythemic Wound General Appearance: Reddened Wound Comment #1 Sacral stage II pressure ulcer #2 Perineal area chemical burn with erosion Recommendation -Local wound care per protocol -Keep clean and dry -Turn and reposition -Optimize nutrition -Offload both heels -Heel protector on both heels -Low air loss SPR mattress -Assess and f/u accordingly for any changes BONNY SKELTON RN Jan 21, 2017 13:54
[2017-01-21] MEDS ORDERED: Sterile Water Irrig 1000ml IRRIG ONE (19:00)
--- NOTE | 2017-01-21 23:00 | Progress Note ---
DATE: 01/21/2017 CARDIOLOGY PROGRESS NOTE SUBJECTIVE: The patient is tolerating feedings. Oral intake is minimal. She is also on IV hydration. OBJECTIVE: VITAL SIGNS: Blood pressure 131/78, pulse 89, and respiratory rate 24. No fevers. HEENT: Temporal wasting. Dry mucous membranes. NECK: Supple. LUNGS: Clear. CARDIAC: Regular. Normal S1 and S2 with a fourth heart sound. ABDOMEN: Soft. EXTREMITIES: No edema. LABORATORY DATA: White count 9.9 and hemoglobin 11.5. Potassium 4.1, BUN 39, and creatinine 1.2. Albumin 3.0. IMPRESSION: 1. Hypovolemia. 2. Dehydration. 3. Hyponatremia. 4. Hypochloremia, resolved. 5. Metabolic acidosis, resolved. 6. Mild protein-calorie malnutrition. 7. Dysphagia with gastrostomy tube. 8. Dementia. 9. Hypertensive heart disease. 10. Arteriosclerotic cardiovascular disease. PLAN: 1. Continue IV fluids. 2. Nutrition by feeding tube with fluid support. 3. Protein supplement. 4. Titrate cardiovascular regimen. Han Capone M.D. DR: JOHNATHON JOB#: [id number] CC:
[2017-01-22 00:46] VITALS: BP 142/84
[2017-01-22 04:32] VITALS: BP 108/79
[2017-01-22 08:48] VITALS: BP 143/81
[2017-01-22 08:53] LABS: ALANINE AMINOTRANSFERASE 18 U/L (12-78); ALBUMIN/GLOBULIN RATIO 0.5 (1.0-2.7); ANION GAP 8 mmol/L (5-15); ASPARTATE AMINO TRANSFERASE 55 U/L (15-37); CALCIUM 8.7 MG/DL (8.5-10.1); CARBON DIOXIDE 27 MMOL/L (21-32); CHLORIDE 96 MMOL/L (98-107); POTASSIUM 3.9 MMOL/L (3.5-5.1); SODIUM 131 MMOL/L (136-145); TOTAL PROTEIN 8.6 G/DL (6.4-8.2)
[2017-01-22] MEDS: Ursodiol 300mg cap ORAL SCH ×3 (08:56→12:38)
[2017-01-22] MEDS: Aspirin Baby 81mg ORAL SCH (08:57)
[2017-01-22] MEDS: Pancrease Cap ORAL SCH ×3 (08:57→12:39)
[2017-01-22] MEDS: Multivitamin w/Minerals tab ORAL SCH (08:57)
[2017-01-22] MEDS: Docusate 100mg cap ORAL SCH (08:57)
[2017-01-22] MEDS: Heparin 5000 units/ml inj SUBQ SCH (08:59)
[2017-01-22 12:52] VITALS: BP 109/65
[2017-01-22] MEDS ORDERED: Sterile Water Irrig 1000ml IRRIG ONE (14:29)
--- NOTE | 2017-01-22 16:45 | Discharge Summary ---
DATE OF ADMISSION: 01/19/2017 DATE OF DISCHARGE: 01/22/2017 ADMISSION DIAGNOSES: 1. Chest pain. 2. Possible acute coronary syndrome. 3. History of deep venous thrombosis. 4. Hypertension. 5. Acute renal failure. 6. Dehydration. 7. Hyperkalemia. 8. Toxic metabolic encephalopathy. DISCHARGE DIAGNOSES: 1. Chest pain. 2. Possible acute coronary syndrome. 3. History of deep venous thrombosis. 4. Hypertension. 5. Acute renal failure. 6. Dehydration. 7. Hyperkalemia. 8. Toxic metabolic encephalopathy. HOSPITAL COURSE: The patient is a pleasant female admitted initially with complaints of chest pain. She was admitted for possible acute coronary syndrome. Troponins were negative. She was noted to be dehydrated with an elevated BUN and creatinine. This improved with IV hydration. Cardiology consultation was obtained. On discharge, the patient was doing well. Her dehydration, acute renal failure and hyperkalemia resolved. [facility] DIET: Regular diet as well as G-tube feeds. ACTIVITY: Ad-sean. FOLLOWUP: The patient follow up in one to two days at the detention facility. Pete Martínez M.D. DR: KRISTY JOB#: [id number] CC:
--- NOTE | 2017-01-23 00:15 | Progress Note ---
DATE: 01/22/2017 SUBJECTIVE: The patient has not had any chest pain or shortness of breath. She continued on IV fluids up until now with good improvement in her renal function and electrolyte abnormalities corrected. She is not short of breath. Nutrition by feeding tube is being given since her oral intake is poor. OBJECTIVE: VITAL SIGNS: Blood pressure 143/81, pulse 92, respirations 18, and afebrile. NECK: Supple. LUNGS: Clear. CARDIAC: Regular. Normal S1, S2 with a fourth heart sound. ABDOMEN: Soft and nontender. G-tube intact with no edema. LABORATORY DATA: Sodium 131, potassium 3.9, BUN 26, creatinine 1. Albumin 2.9. IMPRESSION: 1. Dilutional hyponatremia, hypovolemia, and dehydration, corrected. 2. Moderate protein-calorie malnutrition. 3. Dysphagia. 4. Hypertensive heart disease. 5. Chronic diastolic congestive heart failure. 6. Cerebrovascular disease with dementia. PLAN: 1. Nutrition by feeding tube. 2. Free water replacement as needed based on clinical and laboratory parameters by G-tube. 3. Oral intake as tolerated with aspiration precautions. 4. Maintain current cardiovascular regimen. 5. Discontinue intravenous fluids. Han Capone M.D. DR: CHARLY JOB#: [id number] CC:
--- NOTE | 2017-01-23 14:54 | Cardiology Report ---
APPROVED REPORT EKG Measurement Heart [id number] Normal sinus rhythm Normal ECG
== END 2017-01-22 14:30 | DRG 640 ==
LOC: EDBD 17:20 → EMR 17:44 → 2E 18:02 → EDBEDREQ 18:56
DX: E86.0 Dehydration (principal); G92 Toxic encephalopathy; E86.1 Hypovolemia; N17.9 Acute kidney failure, unspecified; E44.0 Moderate protein-calorie malnutrition; R13.10 Dysphagia, unspecified; I24.9 Acute ischemic heart disease, unspecified; Z43.1 Encounter for attention to gastrostomy; Z68.1 Body mass index [BMI] 19.9 or less, adult; E87.1 Hypo-osmolality and hyponatremia; E87.2 Acidosis; E87.5 Hyperkalemia; D72.829 Elevated white blood cell count, unspecified; R07.9 Chest pain, unspecified; Z68.27 Body mass index [BMI] 27.0-27.9, adult; Z86.718 Personal history of other venous thrombosis and embolism; I13.10 Hypertensive heart and chronic kidney disease without heart failure, with stage 1 through stage 4 chronic kidney disease, or unspecified chronic kidney disease; N18.9 Chronic kidney disease, unspecified; F01.50 Vascular dementia, unspecified severity, without behavioral disturbance, psychotic disturbance, mood disturbance, and anxiety; E87.8 Other disorders of electrolyte and fluid balance, not elsewhere classified
CPT/HCPCS: 36415; 71010; 80053; 81003; 82550; 82553; 83735; 83880; 84484; 85025; 85610; 87081; 87086; 87181; 93005; 99285